=== PATIENT | female | born 1940 | race Caucasian/White ===

== ENCOUNTER 2020-05-24 07:10 | Outpatient (REF) | payer MEDICARE, OTHER, SELFPAY ==
[2020-05-24 12:15] LABS: Anion Gap 12 (12-20); Blood Urea Nitrogen 23 mg/dL (9-16); Calcium 8.7 mg/dL (8.4-10.2); Carbon Dioxide 29 mmol/L (22-29); Chloride 102 mmol/L (96-108); Estimated Glomerular Filt Rate 45; Glucose Random 92 mg/dL (60-115); Potassium 4.4 mmol/l (3.3-5.1); Sodium 139 mmol/L (135-145)
== END 2020-05-24 07:11 | disposition home or self-care (01) ==
LOC: HO.HMGCLDS 07:10
PROVIDERS: PCP Internal Medicine; Visit Provider Internal Medicine
DX: N18.30 Chronic kidney disease, stage 3 unspecified (principal)
CPT/HCPCS: 80048

== ENCOUNTER 2020-11-26 08:38 | Outpatient (REF) | payer MEDICARE, OTHER, SELFPAY ==
[2020-11-26 11:29] LABS: Hematocrit 38.6 % (37-47); Mean Corpuscular HGB Conc 33.7 g/dl (31.0-35.0); Mean Corpuscular Hemoglobin 31.9 pg (27.0-33.0); Mean Corpuscular Volume 94.8 fL (80-98); Mean Platelet Volume 10.4 fL (9.4-12.3); Platelet Count 223 X10*3/uL (160-400); Red Blood Count 4.07 X10*6/uL (4.20-5.50); Red Cell Distribution Width 12.4 % (11.0-16.0); White Blood Count 4.8 X10*3/uL (4.8-10.8)
[2020-11-26 12:18] LABS: Thyroid Stimulating Hormone 1.65 uIU/mL (0.32-4.0)
[2020-11-26 12:19] LABS: Alanine Aminotransferase 13 U/L (0-31); Albumin Level 4.2 g/dL (3.5-5.0); Alkaline Phosphatase 64 U/L (39-117); Anion Gap 10 (12-20); Aspartate Amino Transferase 16 U/L (5-31); Bilirubin Total 0.5 mg/dL (0.0-1.0); Blood Urea Nitrogen 19 mg/dL (9-16); Carbon Dioxide 30 mmol/L (22-29); Chloride 103 mmol/L (96-108); Cholesterol 260 mg/dL; Estimated Glomerular Filt Rate 47; Glucose Fasting 91 mg/dL (60-99); HDL Cholesterol 55 mg/dL; LDL Cholesterol Calculated 177 mg/dl; Potassium 4.3 mmol/L (3.3-5.1); Sodium 139 mmol/L (135-145); Triglycerides 144 mg/dL
== END 2020-11-26 08:39 | disposition home or self-care (01) ==
LOC: HO.HMGCLDS 08:38
PROVIDERS: PCP Internal Medicine; Visit Provider Internal Medicine
DX: N18.30 Chronic kidney disease, stage 3 unspecified (principal); E78.00 Pure hypercholesterolemia, unspecified
CPT/HCPCS: 36415; 80053; 80061; 84443; 85027

== ENCOUNTER 2021-03-03 08:23 | Outpatient (REF) | payer MEDICARE, OTHER, SELFPAY ==
--- NOTE | ~2021-03-03 | MM_ITS ---
EXAMINATION: MM SCREENING DIGITAL BREAST TOMOSYNTHESIS, BILATERAL CLINICAL INFORMATION: Screening. Asymptomatic. The lifetime risk of breast cancer based on the Tyrer-Cuzick Model is 3%. COMPARISON: Mammography: 02/27/2020, 02/21/2019, 01/10/2018 TECHNIQUE: Digital breast tomosynthesis is performed in both the craniocaudal and mediolateral oblique views along with computer-aided detection (CAD). Synthesized 2D images are generated from the tomosynthesis. FINDINGS: There are scattered areas of fibroglandular density (ACR BI-RADS breast composition Category b). There are no significant masses, abnormal calcifications, or other abnormalities. There are regional stable punctate round calcifications posterior upper outer right breast and some lesser on the left similar to prior exams. No significant changes. MM/MM tomosynthesis screening BI IMPRESSION: No significant changes from prior studies. ASSESSMENT: BI-RADS 2: Benign RECOMMENDATION: Routine annual mammography screening. This patient's information was entered into a reminder system with a target due date for their next mammogram.
== END 2021-03-03 08:24 | disposition home or self-care (01) ==
LOC: HO.MAMMO 08:23
PROVIDERS: PCP Internal Medicine; Visit Provider Internal Medicine
DX: Z12.31 Encounter for screening mammogram for malignant neoplasm of breast (principal)
CPT/HCPCS: 77063; 77067

== ENCOUNTER 2021-06-08 08:38 | Outpatient (REF) | payer MEDICARE, OTHER, SELFPAY ==
[2021-06-08 11:32] LABS: Hematocrit 39.2 % (37.0-47.0); Hemoglobin 13.4 g/dl (12.0-16.0); Mean Corpuscular HGB Conc 34.2 g/dl (31.0-35.0); Mean Corpuscular Hemoglobin 32.7 pg (27.0-33.0); Mean Corpuscular Volume 95.6 fL (80.0-98.0); Mean Platelet Volume 10.2 fL (9.4-12.3); Platelet Count 242 X10*3/uL (160-400); Red Cell Distribution Width 12.7 % (11.0-16.0); White Blood Count 4.9 X10*3/uL (4.8-10.8)
[2021-06-08 11:39] LABS: Anion Gap 10 (12-20); Blood Urea Nitrogen 21 mg/dL (9-16); Carbon Dioxide 28 mmol/L (22-29); Chloride 104 mmol/L (96-108); Estimated Glomerular Filt Rate 42; Glucose Random 100 mg/dL (60-115); Iron 131 mcg/dL (30-160); Percent Iron Saturation 47 % (15-50); Potassium 4.2 mmol/L (3.3-5.1); Sodium 138 mmol/L (135-145); Total Iron Binding Capacity 277 mcg/dL (228-428); Unsaturated Iron Binding 146 ug/dL
[2021-06-08 12:01] LABS: Vitamin D 25-OH Total 45.6 ng/mL (>30)
[2021-06-08 12:13] LABS: Folate 10.6 ng/mL (> or = 4.0); Vitamin B12 1424 pg/mL (200-900)
== END 2021-06-08 08:39 | disposition home or self-care (01) ==
LOC: HO.HMGCLDS 08:38
PROVIDERS: PCP Internal Medicine; Visit Provider Internal Medicine
DX: N18.30 Chronic kidney disease, stage 3 unspecified (principal); D64.9 Anemia, unspecified; E55.9 Vitamin D deficiency, unspecified; E78.00 Pure hypercholesterolemia, unspecified
CPT/HCPCS: 36415; 80048; 82306; 82607; 82746; 83540; 85027

== ENCOUNTER 2021-09-20 10:30 | Outpatient (RCR) | payer MEDICARE, OTHER, SELFPAY | END 2021-11-30 13:54 | disposition home or self-care (01) | LOC: HO.OT 10:30 | PROVIDERS: Visit Provider Physician Assistant Surgical | DX: M65.321 Trigger finger, right index finger (principal); M65.351 Trigger finger, right little finger; M65.341 Trigger finger, right ring finger; M19.041 Primary osteoarthritis, right hand | CPT/HCPCS: 97110; 97166 ==

== ENCOUNTER 2021-10-26 08:09 | Outpatient (REF) | payer MEDICARE, OTHER, SELFPAY ==
[2021-10-26 11:35] LABS: Hematocrit 38.7 % (37.0-47.0); Mean Corpuscular HGB Conc 33.6 g/dl (31.0-35.0); Mean Corpuscular Hemoglobin 32.2 pg (27.0-33.0); Mean Corpuscular Volume 95.8 fL (80.0-98.0); Mean Platelet Volume 10.5 fL (9.4-12.3); Platelet Count 232 X10*3/uL (160-400); Red Blood Count 4.04 X10*6/uL (4.20-5.50); Red Cell Distribution Width 13.2 % (11.0-16.0); White Blood Count 4.7 X10*3/uL (4.8-10.8)
[2021-10-26 11:46] LABS: Alanine Aminotransferase 13 U/L (0-31); Alkaline Phosphatase 58 U/L (39-117); Anion Gap 12 (12-20); Aspartate Amino Transferase 21 U/L (5-31); Bilirubin Total 0.6 mg/dL (0.0-1.0); Blood Urea Nitrogen 16 mg/dL (9-16); Calcium 9.1 mg/dL (8.4-10.2); Carbon Dioxide 26 mmol/L (22-29); Chloride 104 mmol/L (96-108); Cholesterol 239 mg/dL; Estimated Glomerular Filt Rate 46; Glucose Fasting 92 mg/dL (60-99); HDL Cholesterol 56 mg/dL; Iron 94 mcg/dL (30-160); LDL Cholesterol Calculated 167 mg/dl; Percent Iron Saturation 35 % (15-50); Potassium 4.4 mmol/L (3.3-5.1); Sodium 138 mmol/L (135-145); Total Iron Binding Capacity 268 mcg/dL (228-428); Total Protein 6.8 g/dL (6.5-8.0); Triglycerides 84 mg/dL; Unsaturated Iron Binding 174 ug/dL
[2021-10-26 11:56] LABS: Vitamin D 25-OH Total 40.2 ng/mL (>30)
[2021-10-26 12:10] LABS: Folate 7.6 ng/mL (> or = 4.0); Vitamin B12 1234 pg/mL (200-900)
[2021-10-27 05:03] LABS: SARS COV2 IgG Positive (Negative)
== END 2021-10-26 08:10 | disposition home or self-care (01) ==
LOC: HO.HMGCLDS 08:09
PROVIDERS: Visit Provider Internal Medicine
DX: Z00.00 Encounter for general adult medical examination without abnormal findings (principal); N18.30 Chronic kidney disease, stage 3 unspecified; E55.9 Vitamin D deficiency, unspecified; E78.00 Pure hypercholesterolemia, unspecified; E53.8 Deficiency of other specified B group vitamins; Z20.822 Contact with and (suspected) exposure to COVID-19
CPT/HCPCS: 36415; 80053; 80061; 82306; 82607; 82746; 83540; 85027; 86769

== ENCOUNTER 2021-12-29 08:00 | Outpatient (REF) | payer MEDICARE, OTHER, SELFPAY ==
[2021-12-29 11:45] LABS: Alanine Aminotransferase 19 U/L (0-31); Albumin Level 4.2 g/dL (3.5-5.0); Alkaline Phosphatase 71 U/L (39-117); Anion Gap 11 (12-20); Aspartate Amino Transferase 20 U/L (5-31); Bilirubin Total 0.6 mg/dL (0.0-1.0); Blood Urea Nitrogen 17 mg/dL (9-16); Carbon Dioxide 30 mmol/L (22-29); Chloride 103 mmol/L (96-108); Estimated Glomerular Filt Rate 50; Glucose Fasting 98 mg/dL (60-99); Potassium 4.8 mmol/L (3.3-5.1); Sodium 139 mmol/L (135-145)
== END 2021-12-29 08:01 | disposition home or self-care (01) ==
LOC: HO.HMGCLDS 08:00
PROVIDERS: PCP Internal Medicine; Visit Provider Internal Medicine
DX: I12.9 Hypertensive chronic kidney disease with stage 1 through stage 4 chronic kidney disease, or unspecified chronic kidney disease (principal); N18.30 Chronic kidney disease, stage 3 unspecified
CPT/HCPCS: 36415; 80053

== ENCOUNTER 2022-03-28 11:31 | Outpatient (REF) | payer MEDICARE, OTHER, SELFPAY ==
--- NOTE | ~2022-03-28 | MM_ITS ---
EXAMINATION: MM SCREENING DIGITAL BREAST TOMOSYNTHESIS, BILATERAL CLINICAL INFORMATION: Screening. Asymptomatic. The lifetime risk of breast cancer based on the Tyrer-Cuzick Model is 1.6%. COMPARISON: Mammography: March 03, 2021 and studies dating back to October 28, 2013 TECHNIQUE: Digital breast tomosynthesis is performed in both the craniocaudal and mediolateral oblique views along with computer-aided detection (CAD). Synthesized 2D images are generated from the tomosynthesis. FINDINGS: There are scattered areas of fibroglandular density (ACR BI-RADS breast composition Category b). There are no significant masses, abnormal calcifications, or other abnormalities. MM/MM tomosynthesis screening BI IMPRESSION: No significant changes from prior exam. ASSESSMENT: BI-RADS 1: Negative RECOMMENDATION: Routine annual mammography screening. This patient's information was entered into a reminder system with a target due date for their next mammogram.
== END 2022-03-28 11:32 | disposition home or self-care (01) ==
LOC: HO.MAMMO 11:31
PROVIDERS: PCP Internal Medicine; Visit Provider Internal Medicine
DX: Z12.31 Encounter for screening mammogram for malignant neoplasm of breast (principal)
CPT/HCPCS: 77063; 77067

== ENCOUNTER 2022-06-13 08:12 | Outpatient (REF) | payer MEDICARE, OTHER, SELFPAY ==
[2022-06-13 11:42] LABS: MANUAL DIFF FLAG NO
[2022-06-13 11:55] LABS: Basophils Percent Auto 0.7 % (0-2); Eosinophils Absolute Auto 0.2 X10*3/uL (0.0-0.4); Eosinophils Percent Auto 4.3 % (0-4); Hematocrit 38.4 % (37.0-47.0); Hemoglobin 12.6 g/dl (12.0-16.0); Imm Gran Abs Auto 0.01 X10*3/uL (0.00-0.03); Imm Gran Pct Auto 0.2 % (0.0-0.4); Lymphocytes Absolute Auto 1.6 X10*3/uL (1.2-4.9); Lymphocytes Percent Auto 36.7 % (20-40); Mean Corpuscular HGB Conc 32.8 g/dl (31.0-35.0); Mean Corpuscular Hemoglobin 31.6 pg (27.0-33.0); Mean Corpuscular Volume 96.2 fL (80.0-98.0); Mean Platelet Volume 10.1 fL (9.4-12.3); Monocytes Absolute Auto 0.3 X10*3/uL (0.1-1.2); Monocytes Percent Auto 6.1 % (2-11); Neutrophils Absolute Auto 2.3 x10*3/uL (2.0-8.3); Platelet Count 229 X10*3/uL (160-400); Red Blood Count 3.99 X10*6/uL (4.20-5.50); Red Cell Distribution Width 12.5 % (11.0-16.0); White Blood Count 4.4 X10*3/uL (4.8-10.8)
[2022-06-13 12:12] LABS: Alanine Aminotransferase 16 U/L (0-31); Albumin Level 4.1 g/dL (3.5-5.0); Alkaline Phosphatase 73 U/L (39-117); Anion Gap 15 (12-20); Aspartate Amino Transferase 19 U/L (5-31); Bilirubin Total 0.5 mg/dL (0.0-1.0); Blood Urea Nitrogen 23 mg/dL (9-16); Carbon Dioxide 27 mmol/L (22-29); Chloride 103 mmol/L (96-108); Cholesterol 251 mg/dL; Estimated Glomerular Filt Rate 42; Glucose Fasting 89 mg/dL (60-99); HDL Cholesterol 52 mg/dL; LDL Cholesterol Calculated 174 mg/dl; Potassium 4.9 mmol/L (3.3-5.1); Sodium 140 mmol/L (135-145); Total Protein 6.8 g/dL (6.5-8.0); Triglycerides 129 mg/dL
[2022-06-13 12:34] LABS: TSH reflex Free T4 3.01 uIU/mL (0.32-4.0)
== END 2022-06-13 08:13 | disposition home or self-care (01) ==
LOC: HO.HMGCLDS 08:12
PROVIDERS: PCP Internal Medicine; Visit Provider Internal Medicine
DX: Z00.00 Encounter for general adult medical examination without abnormal findings (principal); E78.00 Pure hypercholesterolemia, unspecified; N18.30 Chronic kidney disease, stage 3 unspecified
CPT/HCPCS: 36415; 80053; 80061; 84443; 85025

== ENCOUNTER 2022-12-15 07:55 | Outpatient (REF) | payer MEDICARE, OTHER, SELFPAY ==
[2022-12-15 12:22] LABS: Alanine Aminotransferase 18 U/L (0-31); Alkaline Phosphatase 77 U/L (39-117); Anion Gap 11 (12-20); Aspartate Amino Transferase 17 U/L (5-31); Bilirubin Total 0.6 mg/dL (0.0-1.0); Blood Urea Nitrogen 18 mg/dL (9-16); Calcium 8.9 mg/dL (8.4-10.2); Carbon Dioxide 29 mmol/L (22-29); Chloride 106 mmol/L (96-108); Cholesterol 260 mg/dL; Estimated Glomerular Filt Rate 52; Glucose Fasting 98 mg/dL (60-99); HDL Cholesterol 49 mg/dL; LDL Cholesterol Calculated 172 mg/dl; Potassium 4.4 mmol/L (3.3-5.1); Sodium 142 mmol/L (135-145); Total Protein 6.6 g/dL (6.5-8.0); Triglycerides 199 mg/dL
[2022-12-15 12:43] LABS: Vitamin D 25-OH Total 35.8 ng/mL (>30)
== END 2022-12-15 07:56 | disposition home or self-care (01) ==
LOC: HO.HMGCLDS 07:55
PROVIDERS: PCP Internal Medicine; Visit Provider Internal Medicine
DX: N18.30 Chronic kidney disease, stage 3 unspecified (principal)
CPT/HCPCS: 36415; 80053; 80061; 82306

== ENCOUNTER 2022-12-26 08:26 | Outpatient (REF) | payer MEDICARE, OTHER, SELFPAY ==
--- NOTE | ~2022-12-26 | XR_ITS ---
EXAMINATION: XR CHEST CLINICAL INFORMATION: Cough COMPARISON: None available. TECHNIQUE: 2 views of the chest were obtained. FINDINGS: The well-expanded and clear. The heart size and pulmonary vascularity is normal. There is moderate spondylosis dorsal spine. There is mild dextroscoliosis dorsal spine. No aggressive lytic or sclerotic process seen. XR/XR chest 2V IMPRESSION: Unremarkable chest exam.
== END 2022-12-26 08:27 | disposition home or self-care (01) ==
LOC: HO.HMGCX 08:26
PROVIDERS: PCP Internal Medicine; Visit Provider Internal Medicine
DX: R05.9 Cough, unspecified (principal)
CPT/HCPCS: 71046

== ENCOUNTER 2023-02-09 13:10 | Outpatient (AMB) | payer MEDICARE, OTHER, SELFPAY ==
[2023-02-09 13:20] VITALS: BP 136/72; PULSE 76; O2SAT 97; BMI 26.2
--- NOTE | 2023-02-09 13:20 | MHC.PC.OV ---
Vital Signs 02/09/23 13:20 Height 5 ft 3 in Weight 148 lb BMI 26.2 BP 136/72 Blood Pressure Location Lt brachial Position Sitting Pulse 76 Pulse Source Pulse Oximeter Pulse Oximetry (%) 97 Oxygen Delivery Method Room Air Intake Visit Reasons: sweating, anxiety Intake Note: Pt is here today for a sick visit. Pt c/o anxiety sweating. Allergies amoxicillin [AMOXICILLIN] Allergy (Intermediate, Verified 02/09/23 13:42) RASH/BURNING/DIFF.BREATHING latex [LATEX] Allergy (Mild, Verified 02/09/23 13:42) RASH Medication List - Last Reconciled 02/09/23 by Celi Sidhu MD albuterol sulfate 90 mcg/actuation (Ventolin HFA) 1 inh inhalation QID PRN cyclosporine 0.05% drps ophthalmic (eye) estradiol 1 patch topical QWEEK fluticasone propionate 50 mcg/actuation 2 sprays intranasal DAILY latanoprost 0.005% 0 drps ophthalmic (eye) pravastatin 40 mg PO DAILY sertraline (Zoloft) 50 mg PO DAILY valacyclovir (Valtrex) 1,000 mg PO BID 10 days Tobacco use date assessed: 12/19/22 Dental Screening Dental Screen Date: 02/09/23 Did you have a dental visit in the last 12 months?: Yes Did you have a dental problem in the last 6 months where you did not have access to dental care?: No Was dental information given to patient?: Patient has dentist HPI sweating, anxiety HPI Details Pt complains of anxiety and depression about broken relationship of 7 years 1 month ago. Pt c/o insomnia and crying a lot. She denies suicidal ideation or change in appetite. [facility] Medical History Anemia Annual physical exam Anxiety and depression Carpal tunnel syndrome Chronic kidney disease, stage 3 Hypercholesterolemia Osteoarthritis RLL pneumonia Syncope, vasovagal Vitamin B 12 deficiency Vitamin D deficiency Surgical History H/O colonoscopy History of cataract History of total abdominal hysterectomy and bilateral salpingo-oophorectomy Family History Father Diabetes HTN (hypertension) Multiple myeloma CVD (cardiovascular disease) Cancer Mother Diabetes HTN (hypertension) CVD (cardiovascular disease) Brother Diabetes HTN (hypertension) Maternal Grandmother Diabetes Maternal Grandfather No problems noted. Paternal Grandfather No problems noted. Paternal Grandmother No problems noted. Maternal Aunt Diabetes Cancer Social History Housing: House Patient Tobacco Use Status: Former Tobacco user Quit Date: 1978 e-Cigarette/Vaping Use: Never Used Second Hand Smoke Exposure: No Current occupational status: retired Cognitive needs: No Hearing needs: No Vision needs: Yes Questionnaire Thrive Questionnaire Date Thrive assessed: 12/19/22 VARSHA-7 AMB Questionnaire VARSHA-7 Date VARSHA - 7 assessed: 12/19/22 Source: Developed by Drs. Toribio Farrell, Pamela Doan, Matheus Rice and colleagues, with an educational franki from [employer]. Review of Systems Const All systems reviewed & are unremarkable except as noted in HPI and below Reports no additional complaints Eyes Reports no additional complaints ENT Reports no additional complaints Card Reports no additional complaints Resp Reports no additional complaints GI Reports no additional complaints Physical exam (Primary Care) Vital Signs: Last Vital Signs Pulse 76 02/09/23 13:20 BP 136/72 02/09/23 13:20 Pulse Ox 97 02/09/23 13:20 Oxygen Delivery Method Room Air 02/09/23 13:20 BMI result Body Mass Index 26.2 Tobacco/Smoking Status: Tobacco use Status Tobacco use date assessed 12/19/22 02/09/23 13:20 Patient Tobacco Use Status Former Tobacco user 02/09/23 13:20 e-Cigarette/Vaping Use Never Used 02/09/23 13:20 Thrive Assessment: Date of Thrive Assessment Date Thrive assessed 12/19/22 02/09/23 13:20 Const General: anxious Resp Effort & Inspection: normal respiratory effort Auscultation: clear to auscultation bilaterally Cardio Rhythm: regular rhythm Heart sounds: S1 normal heart sound present and S2 normal heart sound present Assessment and Plan Assessment & Plan (1) Anxiety: Code(s): F41.9 - Anxiety disorder, unspecified Plan: Start 25 mg of Zoloft for the 1st week then increase to 50 mg. Follow-up in 5 weeks (2) Grief: Code(s): F43.21 - Adjustment disorder with depressed mood Plan: Refer patient to a counselor Medications: New sertraline (Zoloft) 1/2 tabl qd for 1 week, then 1 tabl qd 50 mg PO DAILY 30 tabs 2RF Coding Level of Care Code Est Pt Level 3 (39295) Diagnoses Anxiety F41.9 Grief F43.21
== END 2023-02-09 14:48 | disposition home or self-care (01) ==
PROVIDERS: PCP Internal Medicine; Visit Provider Internal Medicine
DX: F41.9 Anxiety disorder, unspecified (principal); F43.21 Adjustment disorder with depressed mood
CPT/HCPCS: 99213

== ENCOUNTER 2023-03-08 10:45 | Outpatient (AMB) | payer MEDICARE, OTHER, SELFPAY ==
[2023-03-08 10:57] VITALS: BP 120/64; PULSE 64; O2SAT 98; BMI 26.2
--- NOTE | 2023-03-08 10:57 | MHC.PC.OV ---
Vital Signs 03/08/23 10:57 Height 5 ft 3 in Weight 148 lb BMI 26.2 BP 120/64 Blood Pressure Location Lt brachial Position Sitting Pulse 64 Pulse Source Pulse Oximeter Pulse Oximetry (%) 98 Oxygen Delivery Method Room Air Intake Visit Reasons: 1m follow up Intake Note: Pt is here today for 1 month follow up visit. Allergies amoxicillin [AMOXICILLIN] Allergy (Intermediate, Verified 03/08/23 11:10) RASH/BURNING/DIFF.BREATHING latex [LATEX] Allergy (Mild, Verified 03/08/23 11:10) RASH Medication List - Last Reconciled 03/08/23 by Celi Sidhu MD albuterol sulfate 90 mcg/actuation (Ventolin HFA) 1 inh inhalation QID PRN cyclosporine 0.05% drps ophthalmic (eye) estradiol 1 patch topical QWEEK fluticasone propionate 50 mcg/actuation 2 sprays intranasal DAILY latanoprost 0.005% 0 drps ophthalmic (eye) pravastatin 40 mg PO DAILY rosuvastatin (Crestor) 20 mg PO DAILY sertraline (Zoloft) 50 mg PO DAILY valacyclovir (Valtrex) 1,000 mg PO BID 10 days Tobacco use date assessed: 03/08/23 Fall risk assessment: No Falls in past year Last assessed Fall Risk: 03/08/23 HPI 1m follow up HPI Details Pt presents for f/u anxiety and grief, better on Zoloft. Patient has been taking pravastatin for hyperlipidemia. [facility] Medical History Anemia Annual physical exam Anxiety and depression Carpal tunnel syndrome Chronic kidney disease, stage 3 Hypercholesterolemia Osteoarthritis RLL pneumonia Syncope, vasovagal Vitamin B 12 deficiency Vitamin D deficiency Surgical History H/O colonoscopy History of cataract History of total abdominal hysterectomy and bilateral salpingo-oophorectomy Family History Father Diabetes HTN (hypertension) Multiple myeloma CVD (cardiovascular disease) Cancer Mother Diabetes HTN (hypertension) CVD (cardiovascular disease) Brother Diabetes HTN (hypertension) Maternal Grandmother Diabetes Maternal Grandfather No problems noted. Paternal Grandfather No problems noted. Paternal Grandmother No problems noted. Maternal Aunt Diabetes Cancer Social History Housing: House Patient Tobacco Use Status: Former Tobacco user Quit Date: 1978 e-Cigarette/Vaping Use: Never Used Second Hand Smoke Exposure: No Current occupational status: retired Cognitive needs: No Hearing needs: No Vision needs: Yes Questionnaire Thrive Questionnaire Date Thrive assessed: 12/19/22 AUDIT C Alcohol Use Questionnaire (AUDIT-C) 1. How often do you have a drink containing alcohol?: Monthly or less 2. How many drinks containing alcohol do you have on a typical day when you are drinking?: 1 or 2 3. How often do you have six or more drinks on one occasion?: Never Total Score: 1 VARSHA-7 AMB Questionnaire VARSHA-7 Date VARSHA - 7 assessed: 12/19/22 Feeling nervous, anxious, or on edge: 3 = Nearly every day Not being able to stop or control worryin = Nearly every day Worrying too much about different things: 3 = Nearly every day Trouble relaxin = Nearly every day Being so restless that it is hard to sit still: 3 = Nearly every day Becoming easily annoyed or irritable: 3 = Nearly every day Feeling afraid as if something awful might happen: 3 = Nearly every day Total VARSHA-7 score (0-4 normal; 5-9 mild; 10-14 moderate; 15-21 severe): 21 Source: Developed by Drs. Toribio Farrell, Pamela Doan, Matheus Rice and colleagues, with an educational franki from [employer]. Review of Systems Const All systems reviewed & are unremarkable except as noted in HPI and below Reports no additional complaints Eyes Reports no additional complaints ENT Reports no additional complaints Card Reports no additional complaints Resp Reports no additional complaints GI Reports no additional complaints Physical exam (Primary Care) Vital Signs: Last Vital Signs Pulse 64 03/08/23 10:57 BP 146/64 H 03/08/23 10:57 Pulse Ox 98 03/08/23 10:57 Oxygen Delivery Method Room Air 03/08/23 10:57 BMI result Body Mass Index 26.2 Tobacco/Smoking Status: Tobacco use Status Tobacco use date assessed 03/08/23 03/08/23 11:19 Patient Tobacco Use Status Former Tobacco user 03/08/23 10:58 e-Cigarette/Vaping Use Never Used 03/08/23 10:58 Thrive Assessment: Date of Thrive Assessment Date Thrive assessed 12/19/22 03/08/23 10:58 Const General: no acute distress HENMT Mouth: Normal oral and palatal mucosa present Resp Effort & Inspection: normal respiratory effort Auscultation: clear to auscultation bilaterally Cardio Rhythm: regular rhythm Heart sounds: S1 normal heart sound present and S2 normal heart sound present Assessment and Plan Assessment & Plan (1) Anxiety: Code(s): F41.9 - Anxiety disorder, unspecified Plan: Continue Zoloft (2) Hypercholesterolemia: Code(s): E78.00 - Pure hypercholesterolemia, unspecified Plan: Change pravastatin to Crestor 20 mg and follow low-cholesterol diet Medications: New rosuvastatin (Crestor) 20 mg PO DAILY 90 tabs 0RF Discontinued pravastatin Discontinued Reason: Doctor's Order 40 mg PO DAILY 90 tabs 0RF Coding Level of Care Code Est Pt Level 3 (04692) Diagnoses Anxiety F41.9 Hypercholesterolemia E78.00
== END 2023-03-08 12:22 | disposition home or self-care (01) ==
PROVIDERS: PCP Internal Medicine; Visit Provider Internal Medicine
DX: F41.9 Anxiety disorder, unspecified (principal); E78.00 Pure hypercholesterolemia, unspecified
CPT/HCPCS: 99213

== ENCOUNTER 2023-04-05 10:37 | Outpatient (REF) | payer MEDICARE, OTHER, SELFPAY ==
--- NOTE | ~2023-04-05 | MM_ITS ---
EXAMINATION: MM SCREENING DIGITAL BREAST TOMOSYNTHESIS, BILATERAL CLINICAL INFORMATION: Screening. Asymptomatic. COMPARISON: Mammography: This study is compared with prior exams dating back to 2018. TECHNIQUE: Digital breast tomosynthesis is performed in both the craniocaudal and mediolateral oblique views along with computer-aided detection (CAD). Synthesized 2D images are generated from the tomosynthesis. FINDINGS: There are scattered areas of fibroglandular density (ACR BI-RADS breast composition Category b). There are no significant masses, abnormal calcifications, or other abnormalities. Unchanged, benign, loosely grouped calcifications in the upper quadrant of the right breast are present. MM/MM tomosynthesis screening BI IMPRESSION: No mammographic evidence of malignancy. ASSESSMENT: BI-RADS BI-RADS 2 - Benign Findings RECOMMENDATION: Routine annual mammography screening. 1 year F/U This examination should not preclude the clinical evaluation of a suspicious palpable abnormality. This patient's information was entered into a reminder system with a target due date for their next mammogram.
== END 2023-04-05 10:38 | disposition home or self-care (01) ==
LOC: HO.MAMMO 10:37
PROVIDERS: PCP Internal Medicine; Visit Provider Internal Medicine
DX: Z12.31 Encounter for screening mammogram for malignant neoplasm of breast (principal)
CPT/HCPCS: 77063; 77067

== ENCOUNTER → 2023-04-05 11:00 | Outpatient (BNV) | payer MEDICARE, OTHER, SELFPAY | PROVIDERS: PCP Internal Medicine; Visit Provider Radiology Diagnostic Radiology | DX: Z12.31 Encounter for screening mammogram for malignant neoplasm of breast (principal) | CPT/HCPCS: 77063; 77067 ==

== ENCOUNTER 2023-04-19 10:47 | Outpatient (AMB) | payer MEDICARE, OTHER, SELFPAY ==
[2023-04-19 10:49] VITALS: BP 136/72; PULSE 71; O2SAT 95; BMI 25.7
--- NOTE | 2023-04-19 10:49 | MHC.PC.OV ---
Vital Signs 04/19/23 10:49 Height 5 ft 3 in Weight 145 lb BMI 25.7 BP 136/72 Blood Pressure Location Lt brachial Position Sitting Pulse 71 Pulse Source Pulse Oximeter Pulse Oximetry (%) 95 Oxygen Delivery Method Room Air Intake Visit Reasons: 6 week fu Intake Note: Pt is here today for 6 weeks follow up visit. Allergies amoxicillin [AMOXICILLIN] Allergy (Intermediate, Verified 04/19/23 10:51) RASH/BURNING/DIFF.BREATHING latex [LATEX] Allergy (Mild, Verified 04/19/23 10:51) RASH Medication List - Last Reconciled 04/19/23 by Celi Sidhu MD albuterol sulfate 90 mcg/actuation (Ventolin HFA) 1 inh inhalation QID PRN cyclosporine 0.05% drps ophthalmic (eye) estradiol 1 patch topical QWEEK fluticasone propionate 50 mcg/actuation 2 sprays intranasal DAILY latanoprost 0.005% 0 drps ophthalmic (eye) rosuvastatin (Crestor) 20 mg PO DAILY sertraline (Zoloft) 50 mg PO DAILY valacyclovir (Valtrex) 1,000 mg PO BID 10 days Tobacco use date assessed: 04/19/23 Dental Screening Dental Screen Date: 04/19/23 Did you have a dental visit in the last 12 months?: Yes Did you have a dental problem in the last 6 months where you did not have access to dental care?: No Was dental information given to patient?: Patient has dentist HPI 6 week fu HPI Details Pt presents for f/u of anxiety, stable on Zoloft PFSH Medical History Vitamin B 12 deficiency Annual physical exam Vitamin D deficiency Anemia Chronic kidney disease, stage 3 RLL pneumonia Carpal tunnel syndrome Anxiety and depression Osteoarthritis Syncope, vasovagal Hypercholesterolemia Surgical History H/O colonoscopy History of cataract History of total abdominal hysterectomy and bilateral salpingo-oophorectomy Family History Father Diabetes HTN (hypertension) Multiple myeloma CVD (cardiovascular disease) Cancer Mother Diabetes HTN (hypertension) CVD (cardiovascular disease) Brother Diabetes HTN (hypertension) Maternal Grandmother Diabetes Maternal Grandfather No problems noted. Paternal Grandfather No problems noted. Paternal Grandmother No problems noted. Maternal Aunt Diabetes Cancer Social History Housing: House Patient Tobacco Use Status: Former Tobacco user Quit Date: 1978 e-Cigarette/Vaping Use: Never Used Second Hand Smoke Exposure: No Current occupational status: retired Cognitive needs: No Hearing needs: No Vision needs: Yes Questionnaire Thrive Questionnaire Date Thrive assessed: 12/19/22 VARSHA-7 AMB Questionnaire VARSHA-7 Date VARSHA - 7 assessed: 12/19/22 Source: Developed by Drs. Toribio Farrell, Pamela Doan, Matheus Rice and colleagues, with an educational franki from [employer]. Review of Systems Const All systems reviewed & are unremarkable except as noted in HPI and below Reports no additional complaints Eyes Reports no additional complaints ENT Reports no additional complaints Card Reports no additional complaints Resp Reports no additional complaints GI Reports no additional complaints Reports no additional complaints Physical exam (Primary Care) Vital Signs: Last Vital Signs Pulse 71 04/19/23 10:49 BP 136/72 04/19/23 10:49 Pulse Ox 95 04/19/23 10:49 Oxygen Delivery Method Room Air 04/19/23 10:49 BMI result Body Mass Index 25.7 Tobacco/Smoking Status: Tobacco use Status Tobacco use date assessed 04/19/23 04/19/23 10:53 Patient Tobacco Use Status Former Tobacco user 04/19/23 10:53 e-Cigarette/Vaping Use Never Used 04/19/23 10:53 Thrive Assessment: Date of Thrive Assessment Date Thrive assessed 12/19/22 04/19/23 10:53 Const General: no acute distress HENMT Ears: hearing grossly normal bilaterally Face and sinus: Yes normal facial exam Throat: Yes posterior oropharynx normal Neck Neck: Yes supple Resp Effort & Inspection: normal respiratory effort Auscultation: clear to auscultation bilaterally Cardio Rhythm: regular rhythm Heart sounds: S1 normal heart sound present and S2 normal heart sound present Assessment and Plan Assessment & Plan (1) Anxiety: Code(s): F41.9 - Anxiety disorder, unspecified Plan: cont Zoloft (2) Hypercholesterolemia: Code(s): E78.00 - Pure hypercholesterolemia, unspecified Plan: cont Crestor Coding Level of Care Code Est Pt Level 3 (82444) Diagnoses Anxiety F41.9 Hypercholesterolemia E78.00
== END 2023-04-19 11:13 | disposition home or self-care (01) ==
PROVIDERS: PCP Internal Medicine; Visit Provider Internal Medicine
DX: F41.9 Anxiety disorder, unspecified (principal); E78.00 Pure hypercholesterolemia, unspecified
CPT/HCPCS: 99213

== ENCOUNTER 2023-06-12 07:46 | Outpatient (REF) | payer MEDICARE, OTHER, SELFPAY ==
[2023-06-12 11:17] LABS: MANUAL DIFF FLAG NO
[2023-06-12 11:25] LABS: Basophils Percent Auto 0.6 % (0-2); Eosinophils Absolute Auto 0.2 X10*3/uL (0.0-0.4); Eosinophils Percent Auto 3.1 % (0-4); Hematocrit 37.5 % (37.0-47.0); Hemoglobin 12.3 g/dl (12.0-16.0); Imm Gran Abs Auto 0.01 X10*3/uL (0.00-0.03); Imm Gran Pct Auto 0.2 % (0.0-0.4); Lymphocytes Percent Auto 31.1 % (20-40); Mean Corpuscular HGB Conc 32.8 g/dl (31.0-35.0); Mean Corpuscular Hemoglobin 31.8 pg (27.0-33.0); Mean Corpuscular Volume 96.9 fL (80.0-98.0); Mean Platelet Volume 10.1 fL (9.4-12.3); Monocytes Absolute Auto 0.3 X10*3/uL (0.1-1.2); Monocytes Percent Auto 5.3 % (2-11); Neutrophils Absolute Auto 3.8 x10*3/uL (2.0-8.3); Neutrophils Percent Auto 59.7 % (45-73); Platelet Count 231 X10*3/uL (160-400); Red Blood Count 3.87 X10*6/uL (4.20-5.50); Red Cell Distribution Width 13.1 % (11.0-16.0); White Blood Count 6.4 X10*3/uL (4.8-10.8)
[2023-06-12 11:59] LABS: Alanine Aminotransferase 32 U/L (0-31); Albumin Level 4.1 g/dL (3.5-5.0); Alkaline Phosphatase 74 U/L (39-117); Anion Gap 9 (12-20); Aspartate Amino Transferase 26 U/L (5-31); Bilirubin Total 0.4 mg/dL (0.0-1.0); Blood Urea Nitrogen 13 mg/dL (9-16); Calcium 8.9 mg/dL (8.4-10.2); Carbon Dioxide 30 mmol/L (22-29); Chloride 104 mmol/L (96-108); Cholesterol 125 mg/dL (<200); Estimated Glomerular Filt Rate 53; Glucose Fasting 99 mg/dL (60-99); HDL Cholesterol 49 mg/dL (>40); LDL Cholesterol Calculated 51 mg/dL (<100); Potassium 4.1 mmol/L (3.3-5.1); Sodium 139 mmol/L (135-145); TSH reflex Free T4 2.14 uIU/mL (0.32-4.0); Triglycerides 128 mg/dL (<150); Vitamin D 25-OH Total 43.7 ng/mL (>30)
== END 2023-06-12 07:47 | disposition home or self-care (01) ==
LOC: HO.HMGCLDS 07:46
PROVIDERS: PCP Internal Medicine; Visit Provider Internal Medicine
DX: N18.30 Chronic kidney disease, stage 3 unspecified (principal); E53.8 Deficiency of other specified B group vitamins; E78.00 Pure hypercholesterolemia, unspecified; E55.9 Vitamin D deficiency, unspecified
CPT/HCPCS: 36415; 80053; 80061; 82306; 84443; 85025

== ENCOUNTER 2023-06-19 08:46 | Outpatient (AMB) | payer MEDICARE, OTHER, SELFPAY ==
[2023-06-19 08:54] VITALS: BP 120/66; PULSE 75; O2SAT 98; BMI 25.3
--- NOTE | 2023-06-19 08:54 | A.OFFVIS_ITS ---
Intake Vital Signs 06/19/23 08:54 Height 5 ft 3 in Weight 143 lb BMI 25.3 BP 120/66 Blood Pressure Location Lt brachial Position Sitting Pulse 75 Pulse Source Pulse Oximeter Pulse Oximetry (%) 98 Oxygen Delivery Method Room Air Intake Visit Reasons: [facility] G0439 Allergies amoxicillin [AMOXICILLIN] Allergy (Intermediate, Verified 06/19/23 08:58) RASH/BURNING/DIFF.BREATHING latex [LATEX] Allergy (Mild, Verified 06/19/23 08:58) RASH Medication List - Last Reconciled 06/19/23 by Celi Sidhu MD albuterol sulfate 90 mcg/actuation (Ventolin HFA) 1 inh inhalation QID PRN cyclosporine 0.05% drps ophthalmic (eye) estradiol 1 patch topical QWEEK fluticasone propionate 50 mcg/actuation 2 sprays intranasal DAILY latanoprost 0.005% 0 drps ophthalmic (eye) rosuvastatin (Crestor) 20 mg PO DAILY sertraline (Zoloft) 50 mg PO DAILY valacyclovir (Valtrex) 1,000 mg PO BID 10 days HPI [facility] G0439 HPI Details Initiated the conversation about Advanced Directives. Advanced Directives help? patients prepare for current and future decisions about their medical treatment? and place of care. Discussed with patient that it is a process where a patients? current condition and prognosis are reviewed, their wishes for information? regarding their illness are elicited, and likely medical dilemmas are presented? and options discussed. The form can be amended as needed, reviewed yearly and? make changes as needed IPPE/AWV ? year old presents? for her ? Annual? Wellness Visit, initial visit.? Medical / Social History Reviewed? Past Medical History ?Yes? . ? [place]? of Care / Care Team list updated ?Yes . ? Surgical/Hospitalization? History ?Yes . ? Current Medications? (including OTC and supplements) ?Yes . ? Family History ?Yes? . ? Tobacco? Control form ?Yes . ? AUDIT-C (Alcohol use) form? ?Yes . ? Illicit drug use in Social? History ?Yes . ? Current diagnosis of? depression? ?No ? Appropriate PHQ2/PHQ9? completed ?Yes . ? Data entered by ?Medical? Sales Solutions Representative and reviewed by provider ? Fall Risk ? Fall? History? Have you had any falls with? injury in the past year? ?No . ? Have you had two or more? falls in the past year? ?No . ? Fall Risk Assessment: ?No? falls in the past year . ? HRA filled out by? the patient, reviewed by Provider and scanned. ? IPPE/AWV ? Balance? [place]? ?Yes . ? Tandem? walk ?Yes . ? Walk and? Turn ?Yes . ? Rise from? sit to stand ?Yes . ?Vision? Corrective? lens ?Yes ? Vision? screen ? Up-to-date, has an appointment [] for vision? screening and glaucoma screening ?Hearing? Whisper? test ?pass .? Initiated the conversation about Advanced Directives. Advanced Directives help? patients prepare for current and future decisions about their medical treatment? and place of care. Discussed with patient that it is a process where a patien ts? current condition and prognosis are reviewed, their wishes for information? regarding their illness are elicited, and likely medical dilemmas are presented? and options discussed. The form can be amended as needed, reviewed yearly and? make changes as needed Written? Plan?Completed. See Patient? Documents. [facility] Medical History Vitamin B 12 deficiency Annual physical exam Vitamin D deficiency Anemia Chronic kidney disease, stage 3 RLL pneumonia Carpal tunnel syndrome Anxiety and depression Osteoarthritis Syncope, vasovagal Hypercholesterolemia Surgical History H/O colonoscopy History of cataract History of total abdominal hysterectomy and bilateral salpingo-oophorectomy Family History Father Diabetes HTN (hypertension) Multiple myeloma CVD (cardiovascular disease) Cancer Mother Diabetes HTN (hypertension) CVD (cardiovascular disease) Brother Diabetes HTN (hypertension) Maternal Grandmother Diabetes Maternal Grandfather No problems noted. Paternal Grandfather No problems noted. Paternal Grandmother No problems noted. Maternal Aunt Diabetes Cancer Social History Housing: House Patient Tobacco Use Status: Former Tobacco user Quit Date: 1978 e-Cigarette/Vaping Use: Never Used Second Hand Smoke Exposure: No Current occupational status: retired Cognitive needs: No Hearing needs: No Vision needs: Yes Questionnaire Medicare Wellness Checkup What is your age?: 80 or older What gender do you identify with?: female During the past 4 weeks, how much have you been bothered by emotional problems such as feeling anxious, depressed, irritable, sad or downhearted, and blue?: see PHQ-9 During the past 4 weeks, has your physical & emotional health limited your social activities with family, friends, neighbors, or groups?: extremely During the past 4 weeks, how much bodily pain have you generally had?: no pain During the past 4 weeks, was someone available to help you if you needed & wanted help?: no, not at all During the past 4 weeks, what was the hardest physical activity you could do for at least 2 minutes?: very heavy Can you get to places out of walking distance without help? (For eg., can you travel alone on buses, taxis or drive your car?): Yes Can you go shopping for groceries or clothes without someone's help?: Yes Can you prepare your own meals?: Yes Can you do your housework without help?: Yes Because of any health problems, do you need the help of another person with your personal care needs such as eating, bathing, dressing or getting around the house?: No Can you handle your own money without help?: Yes During the past 4 weeks, how would you rate your health in general?: excellent During the past 4 weeks how have things been going for you?: good & bad parts about equal Are you having difficulties driving your car?: no Do you always fasten your seat belt when you are in a car?: yes, usually During past 4 weeks, have you been bothered by the following: never: Sexual problems?, Trouble eating well?, Teeth or denture problems?, Problems using the telephone? and Tiredness or fatigue? and seldom: Falling or dizzy when standing up Have you fallen 2 or more times in the past year?: Yes Are you afraid of falling?: No Are you a smoker?: no During the past 4 weeks, how many drinks of wine, beer, or other alcoholic beverages did you have?: 10 or more per week Do you exercise for about 20 minutes 3 or more times a week?: yes, some of the time Have you been given information to help with the following?: no: Hazards in your house that might hurt you? and no: Keeping track of your medications? How often do you have trouble taking medicines the way you have been told to take them?: I always take medicine as prescribed How confident are you that you can control & manage most of your health problems?: very confident What is your race?: White Mini Mental State Exam (MMSE) Orientation What is the (year) (season) (date) (day) (month)?: year, season, date, day and month Where are we (state) (county) (town or city) (hospital) (floor)?: state, county, town or city, hospital/clinic and floor Registration Name of 3 unrelated objects clearly and slowly, then ask patient to repeat all 3 of them. (1st repeat determines score. Make sure they can repeat all three): object 1 and object 2 Attention & Calculation (CHOOSE ONE) Spell WORLD backwards (DLROW): 5 letters Recall Ask patient to repeat the 3 items from question #3.: object 1, object 2 and object 3 Language Show patient a wristwatch & ask what it is. Repeat for pencil.: watch and pencil Ask the patient to repeat the phrase 'No ifs, ands, or buts' after you.: correct Ask the patient to 'take a piece of paper with their right hand' 'fold paper in half' 'place paper on floor': take paper in right hand, fold paper in half and place paper on floor Print the sentence 'CLOSE YOUR EYES' on a piece. If patient actually closes eyes then score.: followed written direction Give patient a blank piece of paper & ask to write a sentence. Score if it contains a noun & verb.: sentence contains subject and verb Ask patient to copy figure of intersecting pentagons exactly. Score if all 10 angles & 2 intersects are included.: all 10 angles present & 2 are intersected Score Score: 29 Activity of Daily Living Bathing - sponge bath, tub bath or shower: receives no assistance (gets in/out by self, if usual bathing means Dressing - getting clothes from closets & drawers, including inner/outer garments & fasteners.: gets clothes & gets completely dressed without help Toileting - going to the 'toilet room' for urine/bowel elimination & cleaning self/arranging clothes: goes to toilet room, cleans self, arranges clothes without help Transfer: moves in & out of bed and chair without help (may use support object) Continence: controls urination/bowel movements completely by self Feeding: feeds self without help Total Score: 0 Information obtained from: patient Using telephone: independent Traveling: independent Shopping: independent Preparing meals: independent Housework: independent Taking medicine: independent Managing money: independent PHQ-9 Over the last 2 weeks, how often have you been bothered by any of the following problems? 1. Little interest or pleasure in doing things: not at all 2. Feeling down, depressed, or hopeless: not at all 3. Trouble falling or staying asleep, or sleeping too much: several days 4. Feeling tired or having little energy: several days 5. Poor appetite or overeating: not at all 6. Feeling bad about yourself - or that you are a failure or have let yourself or your family down: not at all 7. Trouble concentrating on things, such as reading the newspaper or watching television: not at all 8. Moving or speaking so slowly that other people could have noticed. Or the opposite - being so fidgety or restless that you have been moving around a lot more than usual: not at all 9. Thoughts that you would be better off or of hurting yourself in some way: not at all Total score: 2 Depression Screening Interpretation: Negative Depression Screening Done: Yes Source: Developed by Drs. Toribio Farrell, Pamela Doan, Matheus Rice and colleagues, with an educational franki from [employer]. Review of Systems Const All systems reviewed & are unremarkable except as noted in HPI and below Eyes Reports no additional complaints ENT Reports no additional complaints Card Reports no additional complaints Resp Reports no additional complaints GI Reports no additional complaints Reports no additional complaints Musc Reports no additional complaints Neuro Reports no additional complaints Physical Exam Vital Signs: Last Vital Signs Pulse 75 06/19/23 08:54 BP 120/66 06/19/23 08:54 Pulse Ox 98 06/19/23 08:54 Oxygen Delivery Method Room Air 06/19/23 08:54 BMI result Body Mass Index 25.3 Const General: no acute distress HEENT Head: Yes normal to inspection Ears: hearing grossly normal bilaterally Eyes General: appearance normal, both eyes and all related structures Neck Neck: Yes no lymphadenopathy and Yes supple Resp Effort & Inspection: normal respiratory effort Auscultation: clear to auscultation bilaterally Cardio Rhythm: regular rhythm Heart sounds: S1 normal heart sound present and S2 normal heart sound present GI Inspection: Yes normal to inspection Palpation (GI): Soft to palpation Percussion: Yes normal to percussion Auscultation: normal bowel sounds Extrem General: Yes no clubbing, cyanosis or edema Assessment & Plan Assessment & Plan (1) Hypercholesterolemia: Code(s): E78.00 - Pure hypercholesterolemia, unspecified Plan: Decrease Crestor to 10 mg a day check lipid profile in 3 months (2) Postmenopausal: Code(s): Z78.0 - Asymptomatic menopausal state Plan: Check DEXA (3) Annual physical exam: Code(s): Z00.00 - Encounter for general adult medical examination without abnormal findings Plan: Well-balanced diet and regular physical activity discussed with the patient. (4) Anxiety: Code(s): F41.9 - Anxiety disorder, unspecified Plan: Continue Zoloft follow-up in 3 months Orders: Orders Lipid Panel 3 Months E78.00 - Pure hypercholesterolemia, unspecified XR DEXA axial skeleton Today Z78.0 - Asymptomatic menopausal state Medications: Refilled sertraline (Zoloft) 50 mg PO DAILY 90 tabs 1RF Quality Reporting (2019) Depression/Bipolar (159/160/161/177) PHQ-9: Total score: 2 Coding Level of Care Code Medicare Subsequent (G0439) Diagnoses Hypercholesterolemia E78.00 Postmenopausal Z78.0 Annual physical exam Z00.00 Anxiety F41.9 CPT Codes Advance Care Planning - Time spent: 1-15 minutes, not on file ([id number]) Advance Care Planning Advance Care Planning discussion: Exists, not on file Forms completed: Health Care Proxy Time spent: 1-15 minutes, not on file Did not discuss due to Cultural/Spiritual beliefs: Yes
== END 2023-06-19 09:47 | disposition home or self-care (01) ==
PROVIDERS: PCP Internal Medicine; Visit Provider Internal Medicine
DX: E78.00 Pure hypercholesterolemia, unspecified (principal); Z78.0 Asymptomatic menopausal state; Z00.00 Encounter for general adult medical examination without abnormal findings; F41.9 Anxiety disorder, unspecified
CPT/HCPCS: 1124F; G0439

== ENCOUNTER 2023-08-02 10:41 | Outpatient (REF) | payer MEDICARE, OTHER, SELFPAY ==
--- NOTE | ~2023-08-02 | MM_ITS ---
EXAMINATION: BONE DENSITOMETRY CLINICAL INDICATION: Menopause. COMPARISON: Previous BD dated 09/03/2014 and baseline BD dated 06/16/2008. TECHNIQUE: Using a [employer] DXA System (software version: 13.1) manufactured by [employer], dual-energy x-ray absorptiometry was performed of the lumbar spine and left hip. The images are of good technical quality. Summary results are attached. FINDINGS: LEFT FEMUR, NECK: Current: BMD 0.952 g/cm2, Z-score 1.6, T-score -0.6, normal. Prior: BMD 0.997 g/cm2. Baseline: BMD 1.015 g/cm2. LEFT FEMUR, TOTAL: Current: BMD 1.089 g/cm2, Z-score 2.7, T-score 0.6, normal, 3.0% decrease from previous, 7.2% disc from baseline (<5% change is not significant). Prior: BMD 1.123 g/cm2. Baseline: BMD 1.174 g/cm2. AP SPINE L1-L4: Current: BMD 1.177 g/cm2, Z-score 1.8, T-score 0.0, normal, 0.8% increase from previous, 4.3% increase from baseline (<5% change is not significant). Prior: BMD 1.168 g/cm2. Baseline: BMD 1.128 g/cm2. IDENTIFIED RISK FACTORS: Early menopause, history of fracture (adult), bilateral oophorectomy, hysterectomy, secondary osteoporosis. HISTORY OF FRACTURE: Wrist, other. MEDICATIONS: ERT/SERMS. MM/XR DEXA axial skeleton IMPRESSION: 1. DIAGNOSIS: Normal bone density based on the lowest T-score value of -0.6 in the femoral neck applying World Health Organization criteria. 2. 10-YEAR FRACTURE RISK PREDICTION, FRAX: According to the guidelines, FRAX calculation should only be performed on patients in the osteopenia bone density category. Therefore, FRAX was not performed on this patient. 3. Treatment Recommendations: NOF guidelines recommend consideration for treatment in postmenopausal women and men age 50 and older presenting with the following: -A hip or vertebral (clinical or morphometric) fracture. -T-score less than or equal to -2.5 at the femoral neck or spine after appropriate evaluation to exclude secondary causes. -Low bone mass at the hip or spine and a 10-year fracture probability by FRAX of greater than or equal to 3% for hip fracture or greater than or equal to 20% for major osteoporotic fracture based on the [place] adapted WHO algorithm. 4. Other Recommendations: All treatment decisions require clinical judgment and consideration of individual patient factors, including patient preferences, comorbidities, previous drug use, risk factors not captured in the FRAX model (e.g. frailty, falls, vitamin D deficiency, increased bone turnover, interval significant decline in bone density) and possible under or overestimation of fracture risk by FRAX. FUTURE SCAN RECOMMENDATION: People with diagnosed cases of osteoporosis or at high risk for fracture should have regular bone mineral density tests. For patients eligible for Medicare, routine testing is allowed once every 2 years. The testing frequency can be increased to one year for patients who have rapidly progressing disease, those who are receiving or discontinuing medical therapy to restore bone mass, or have additional risk factors.
== END 2023-08-02 10:42 | disposition home or self-care (01) ==
LOC: HO.MAMMO 10:41
PROVIDERS: PCP Internal Medicine; Visit Provider Internal Medicine
DX: Z78.0 Asymptomatic menopausal state (principal); Z90.722 Acquired absence of ovaries, bilateral; Z90.710 Acquired absence of both cervix and uterus; Z79.810 Long term (current) use of selective estrogen receptor modulators (SERMs)
CPT/HCPCS: 77080

== ENCOUNTER 2023-09-17 07:22 | Outpatient (REF) | payer MEDICARE, OTHER, SELFPAY ==
[2023-09-17 12:05] LABS: Cholesterol 143 mg/dL (<200); HDL Cholesterol 55 mg/dL (>40); LDL Cholesterol Calculated 69 mg/dL (<100); Triglycerides 96 mg/dL (<150)
== END 2023-09-17 07:23 | disposition home or self-care (01) ==
LOC: HO.HMGCLDS 07:22
PROVIDERS: PCP Internal Medicine; Visit Provider Internal Medicine
DX: E78.00 Pure hypercholesterolemia, unspecified (principal)
CPT/HCPCS: 36415; 80061

== ENCOUNTER 2023-09-24 10:04 | Outpatient (AMB) | payer MEDICARE, OTHER, SELFPAY ==
--- NOTE | 2023-09-24 10:24 | MHC.PC.OV ---
Vital Signs 09/24/23 10:26 Height 5 ft 2.9 in Weight 142 lb BMI 25.2 BP 124/68 Blood Pressure Location Lt brachial Position Sitting Pulse 73 Pulse Source Pulse Oximeter Pulse Oximetry (%) 96 Oxygen Delivery Method Room Air Intake Visit Reasons: 3 Month F/U Intake Note: Pt is here today for 3 months follow up visit. Allergies amoxicillin [AMOXICILLIN] Allergy (Intermediate, Verified 09/24/23 10:34) RASH/BURNING/DIFF.BREATHING latex [LATEX] Allergy (Mild, Verified 09/24/23 10:34) RASH Medication List - Last Reconciled 09/24/23 by Celi Sidhu MD albuterol sulfate 90 mcg/actuation (Ventolin HFA) 1 inh inhalation QID PRN cyclosporine 0.05% drps ophthalmic (eye) estradiol 1 patch topical QWEEK fluticasone propionate 50 mcg/actuation 2 sprays intranasal DAILY latanoprost 0.005% 0 drps ophthalmic (eye) rosuvastatin (Crestor) 5 mg PO DAILY sertraline (Zoloft) 50 mg PO DAILY triamcinolone acetonide 0.1% 1 appl topical DAILY valacyclovir (Valtrex) 1,000 mg PO BID 10 days Tobacco use date assessed: 09/24/23 Fall risk assessment: 1 Fall in past year Last assessed Fall Risk: 09/24/23 Dental Screening Dental Screen Date: 09/24/23 Did you have a dental visit in the last 12 months?: Yes Did you have a dental problem in the last 6 months where you did not have access to dental care?: No Was dental information given to patient?: Patient has dentist HPI 3 Month F/U HPI Details Pt presents for f/u of anxiety,CKD 3, hyperlipid, stable on meds. [facility] Medical History Vitamin B 12 deficiency Annual physical exam Vitamin D deficiency Anemia Chronic kidney disease, stage 3 RLL pneumonia Carpal tunnel syndrome Anxiety and depression Osteoarthritis Syncope, vasovagal Hypercholesterolemia Surgical History H/O colonoscopy History of cataract History of total abdominal hysterectomy and bilateral salpingo-oophorectomy Family History Father Diabetes HTN (hypertension) Multiple myeloma CVD (cardiovascular disease) Cancer Mother Diabetes HTN (hypertension) CVD (cardiovascular disease) Brother Diabetes HTN (hypertension) Maternal Grandmother Diabetes Maternal Grandfather No problems noted. Paternal Grandfather No problems noted. Paternal Grandmother No problems noted. Maternal Aunt Diabetes Cancer Social History Housing: House Patient Tobacco Use Status: Former Tobacco user Quit Date: 1978 e-Cigarette/Vaping Use: Never Used Second Hand Smoke Exposure: No Current occupational status: retired Cognitive needs: No Hearing needs: No Vision needs: Yes Questionnaire Thrive Questionnaire Date Thrive assessed: 12/19/22 AUDIT C Alcohol Use Questionnaire (AUDIT-C) 1. How often do you have a drink containing alcohol?: 2-4 times a month 2. How many drinks containing alcohol do you have on a typical day when you are drinking?: 1 or 2 3. How often do you have six or more drinks on one occasion?: Never Total Score: 2 VARSHA-7 AMB Questionnaire VARSHA-7 Date VARSHA - 7 assessed: 12/19/22 Feeling nervous, anxious, or on edge: 0 = Not at all Not being able to stop or control worryin = Not at all Worrying too much about different things: 0 = Not at all Trouble relaxin = Not at all Being so restless that it is hard to sit still: 0 = Not at all Becoming easily annoyed or irritable: 0 = Not at all Feeling afraid as if something awful might happen: 0 = Not at all Total VARSHA-7 score (0-4 normal; 5-9 mild; 10-14 moderate; 15-21 severe): 0 Source: Developed by Drs. Toribio Farrell, Pamela Doan, Matheus Rice and colleagues, with an educational franki from [employer]. Review of Systems Const All systems reviewed & are unremarkable except as noted in HPI and below Reports no additional complaints Eyes Reports no additional complaints ENT Reports no additional complaints Card Reports no additional complaints Resp Reports no additional complaints GI Reports no additional complaints Reports no additional complaints Physical exam (Primary Care) Vital Signs: Last Vital Signs Pulse 73 09/24/23 10:26 BP 124/68 09/24/23 10:26 Pulse Ox 96 09/24/23 10:26 Oxygen Delivery Method Room Air 09/24/23 10:26 BMI result Body Mass Index 25.2 Tobacco/Smoking Status: Tobacco use Status Tobacco use date assessed 09/24/23 09/24/23 10:37 Patient Tobacco Use Status Former Tobacco user 09/24/23 10:37 e-Cigarette/Vaping Use Never Used 09/24/23 10:26 Thrive Assessment: Date of Thrive Assessment Date Thrive assessed 12/19/22 09/24/23 10:26 Const General: no acute distress HENMT Head: Yes normal to inspection Face and sinus: Yes normal facial exam Throat: Yes posterior oropharynx normal Eyes General: appearance normal, both eyes and all related structures Neck Neck: Yes no lymphadenopathy and Yes supple Resp Effort & Inspection: normal respiratory effort Auscultation: clear to auscultation bilaterally Cardio Rhythm: regular rhythm Heart sounds: S1 normal heart sound present and S2 normal heart sound present GI Inspection: Yes normal to inspection Assessment and Plan Assessment & Plan (1) Anxiety: Code(s): F41.9 - Anxiety disorder, unspecified Plan: cont Zoloft (2) Chronic kidney disease, stage 3: Comment: Normal renal ultrasound 01/02, GFR about 50 Code(s): N18.30 - Chronic kidney disease, stage 3 unspecified Plan: avoid nephrotoxins (3) Hypercholesterolemia: Code(s): E78.00 - Pure hypercholesterolemia, unspecified Plan: Decrease Crestor to 5 mg a day follow-up in 5 months with a fasting labs before Orders: Orders Lipid Panel 5 Months D64.9 - Anemia, unspecified, E78.00 - Pure hypercholesterolemia, unspecified, F41.9 - Anxiety disorder, unspecified, N18.30 - Chronic kidney disease, stage 3 unspecified Comprehensive [place]. Panel Fast 5 Months D64.9 - Anemia, unspecified, E78.00 - Pure hypercholesterolemia, unspecified, F41.9 - Anxiety disorder, unspecified, N18.30 - Chronic kidney disease, stage 3 unspecified Complete Blood Count Auto Diff 5 Months D64.9 - Anemia, unspecified, E78.00 - Pure hypercholesterolemia, unspecified, F41.9 - Anxiety disorder, unspecified, N18.30 - Chronic kidney disease, stage 3 unspecified Medications: New rosuvastatin (Crestor) 5 mg PO DAILY 90 tabs 3RF triamcinolone acetonide 0.1% 1 appl topical DAILY 30 grams 1RF Refilled fluticasone propionate 50 mcg/actuation 2 sprays intranasal DAILY 16 grams 3RF estradiol 1 patch topical QWEEK 12 patches 3RF Z90.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
[2023-09-24 10:26] VITALS: BP 124/68; PULSE 73; O2SAT 96; BMI 25.2
== END 2023-09-24 11:18 | disposition home or self-care (01) ==
PROVIDERS: PCP Internal Medicine; Visit Provider Internal Medicine
DX: F41.9 Anxiety disorder, unspecified (principal); N18.30 Chronic kidney disease, stage 3 unspecified; E78.00 Pure hypercholesterolemia, unspecified
CPT/HCPCS: 99214

== ENCOUNTER 2024-02-25 09:58 | Outpatient (AMB) | payer MEDICARE, OTHER, SELFPAY ==
--- NOTE | 2024-02-25 10:00 | A.OFFPC_ITS ---
Vital Signs 02/25/24 10:04 Height 5 ft 3 in Weight 146 lb BMI 25.9 BP 134/74 Blood Pressure Location Lt brachial Position Sitting Pulse 77 Pulse Source Pulse Oximeter Pulse Oximetry (%) 96 Oxygen Delivery Method Room Air Intake Visit Reasons: 5 month follow up Allergies amoxicillin [AMOXICILLIN] Allergy (Intermediate, Verified 02/25/24 10:04) RASH/BURNING/DIFF.BREATHING latex [LATEX] Allergy (Mild, Verified 02/25/24 10:04) RASH Medication List - Last Reconciled 02/25/24 by Celi Sidhu MD albuterol sulfate 90 mcg/actuation (Ventolin HFA) 1 inh inhalation QID PRN cyclosporine 0.05% drps ophthalmic (eye) estradiol 1 patch topical QWEEK fluticasone propionate 50 mcg/actuation 2 sprays intranasal DAILY latanoprost 0.005% 0 drps ophthalmic (eye) rosuvastatin (Crestor) 5 mg PO DAILY sertraline (Zoloft) 50 mg PO DAILY triamcinolone acetonide 0.1% 1 appl topical DAILY valacyclovir (Valtrex) 1,000 mg PO BID 10 days Tobacco use date assessed: 09/24/23 Dental Screening Dental Screen Date: 09/24/23 HPI 5 month follow up HPI Details Pt presents for hyperlipid and anxiety, stable on meds. [facility] Medical History Vitamin B 12 deficiency Annual physical exam Vitamin D deficiency Anemia Chronic kidney disease, stage 3 RLL pneumonia Carpal tunnel syndrome Anxiety and depression Osteoarthritis Syncope, vasovagal Hypercholesterolemia Surgical History H/O colonoscopy History of cataract History of total abdominal hysterectomy and bilateral salpingo-oophorectomy Family History Father Diabetes HTN (hypertension) Multiple myeloma CVD (cardiovascular disease) Cancer Mother Diabetes HTN (hypertension) CVD (cardiovascular disease) Brother Diabetes HTN (hypertension) Maternal Grandmother Diabetes Maternal Grandfather No problems noted. Paternal Grandfather No problems noted. Paternal Grandmother No problems noted. Maternal Aunt Diabetes Cancer Social History (Reviewed 02/25/24 @ 10:13 by Libertad Hogan [facility]) Housing: House Patient Tobacco Use Status: Former Tobacco user e-Cigarette/Vaping Use: Never Used Second Hand Smoke Exposure: No service: No Current occupational status: retired Cognitive needs: No Hearing needs: No Vision needs: Yes Questionnaire PHQ-9 Over the last 2 weeks, how often have you been bothered by any of the following problems? 1. Little interest or pleasure in doing things: not at all 2. Feeling down, depressed, or hopeless: not at all 3. Trouble falling or staying asleep, or sleeping too much: not at all 4. Feeling tired or having little energy: not at all 5. Poor appetite or overeating: not at all 6. Feeling bad about yourself - or that you are a failure or have let yourself or your family down: not at all 7. Trouble concentrating on things, such as reading the newspaper or watching television: not at all 8. Moving or speaking so slowly that other people could have noticed. Or the opposite - being so fidgety or restless that you have been moving around a lot more than usual: not at all 9. Thoughts that you would be better off or of hurting yourself in some way: not at all Total score: 0 Depression Screening Interpretation: Negative Depression Screening Done: Yes Source: Developed by Drs. Toribio Farrell, Pamela Doan, Matheus Rice and colleagues, with an educational franki from [employer]. Thrive Questionnaire Date Thrive assessed: 02/25/24 I am a: Patient What is your living situation today?: I choose not to answer this question Within the past 12 months, did the food you bought not last and you didn't have the money to get more?: I choose not to answer this question Within the past 12 months, did you worry whether your food would run out before you got money to buy more?: I choose not to answer this question Do you have trouble paying for medicines?: I choose not to answer this question Do you have trouble getting transportation to medical appointments?: I choose not to answer this question Do you have trouble paying your heating and electricity bill?: I choose not to answer this question Do you have trouble taking care of your child, family member or friend?: I choose not to answer this question Do you have trouble with day-to-day activities such as bathing, preparing meals, shopping, managing finances, etc.?: I choose not to answer this question Are you currently unemployed and looking for a job?: I choose not to answer this question Are you interested in more education?: I choose not to answer this question Please select the resources that you would like help with: Housing/Snf Currently or been in a relationship where the following occur: I choose not to answer THRIVE Score: 0 AUDIT C Alcohol Use Questionnaire (AUDIT-C) 1. How often do you have a drink containing alcohol?: Monthly or less 2. How many drinks containing alcohol do you have on a typical day when you are drinking?: 1 or 2 3. How often do you have six or more drinks on one occasion?: Never Total Score: 1 VARSHA-7 AMB Questionnaire VARSHA-7 Date VARSHA - 7 assessed: 02/25/24 Feeling nervous, anxious, or on edge: 0 = Not at all Not being able to stop or control worryin = Not at all Worrying too much about different things: 0 = Not at all Trouble relaxin = Not at all Being so restless that it is hard to sit still: 0 = Not at all Becoming easily annoyed or irritable: 0 = Not at all Feeling afraid as if something awful might happen: 0 = Not at all Total VARSHA-7 score (0-4 normal; 5-9 mild; 10-14 moderate; 15-21 severe): 0 Source: Developed by Drs. Toribio Farrell, Pamela Doan, Matheus Rice and colleagues, with an educational franki from [employer]. VARSHA-7 Assessment Billing VARSHA-7 Assessment Tool: VARSHA-7 Assessment 41876 Review of Systems Const All systems reviewed & are unremarkable except as noted in HPI and below Reports no additional complaints Eyes Reports no additional complaints ENT Reports no additional complaints Card Reports no additional complaints Resp Reports no additional complaints GI Reports no additional complaints Reports no additional complaints Physical exam (Primary Care) Vital Signs: Last Vital Signs Pulse 77 02/25/24 10:04 BP 134/74 02/25/24 10:04 Pulse Ox 96 02/25/24 10:04 Oxygen Delivery Method Room Air 02/25/24 10:04 BMI result Body Mass Index 25.9 Tobacco/Smoking Status: Tobacco use Status Tobacco use date assessed 09/24/23 02/25/24 10:00 Patient Tobacco Use Status Former Tobacco user 02/25/24 10:00 e-Cigarette/Vaping Use Never Used 02/25/24 10:00 PHQ-9: PHQ-9 Score PHQ-9: Total score 0 02/25/24 10:10 Depression Screening Interpretation: Negative Thrive Assessment: Date of Thrive Assessment Date Thrive assessed 02/25/24 02/25/24 10:10 Currently or been in a relationship where the following occur: I choose not to answer Const General: no acute distress HENMT Head: Yes normal to inspection Eyes General: appearance normal, both eyes and all related structures Resp Effort & Inspection: normal respiratory effort Auscultation: clear to auscultation bilaterally Cardio Rhythm: regular rhythm Heart sounds: S1 normal heart sound present and S2 normal heart sound present GI Inspection: Yes normal to inspection Assessment and Plan Assessment & Plan (1) Hypercholesterolemia: Code(s): E78.00 - Pure hypercholesterolemia, unspecified Plan: Continue crestor (2) Chronic kidney disease, stage 3: Comment: Normal renal ultrasound 01/02, GFR about 50 Code(s): N18.30 - Chronic kidney disease, stage 3 unspecified Plan: Avoid nephrotoxins monitor renal function (3) Vitamin D deficiency: Code(s): E55.9 - Vitamin D deficiency, unspecified Plan: Continue vitamin-D. (4) Annual physical exam: Code(s): Z00.00 - Encounter for general adult medical examination without abnormal findings (5) Anxiety: Code(s): F41.9 - Anxiety disorder, unspecified Plan: Continue Zoloft Orders: Orders Complete Blood Count Auto Diff 4 Months E55.9 - Vitamin D deficiency, unspecified, E78.00 - Pure hypercholesterolemia, unspecified, N18.30 - Chronic kidney disease, stage 3 unspecified, Z00.00 - Encounter for general adult medical examination without abnormal findings Vitamin D 25-OH Total 4 Months E55.9 - Vitamin D deficiency, unspecified, E78.00 - Pure hypercholesterolemia, unspecified, N18.30 - Chronic kidney disease, stage 3 unspecified, Z00.00 - Encounter for general adult medical examination without abnormal findings Comprehensive [place]. Panel Fast 4 Months E55.9 - Vitamin D deficiency, unspecified, E78.00 - Pure hypercholesterolemia, unspecified, N18.30 - Chronic kidney disease, stage 3 unspecified, Z00.00 - Encounter for general adult medical examination without abnormal findings Lipid Panel 4 Months E55.9 - Vitamin D deficiency, unspecified, E78.00 - Pure hypercholesterolemia, unspecified, N18.30 - Chronic kidney disease, stage 3 un specified, Z00.00 - Encounter for general adult medical examination without abnormal findings TSH reflex Free T4 4 Months E55.9 - Vitamin D deficiency, unspecified, E78.00 - Pure hypercholesterolemia, unspecified, N18.30 - Chronic kidney disease, stage 3 unspecified, Z00.00 - Encounter for general adult medical examination without abnormal findings Coding Level of Care Code Est Pt Level 4 (96155) Diagnoses Hypercholesterolemia E78.00 Chronic kidney disease, stage 3 N18.30 Vitamin D deficiency E55.9 Annual physical exam Z00.00 Anxiety F41.9 Additional Codes VARSHA-7 Assessment Billing - VARSHA-7 Assessment Tool: VARSHA-7 Assessment 07167 ([id number])
[2024-02-25 10:04] VITALS: BP 134/74; PULSE 77; O2SAT 96; BMI 25.9
== END 2024-02-25 10:53 | disposition home or self-care (01) ==
PROVIDERS: PCP Internal Medicine; Visit Provider Internal Medicine
DX: E78.00 Pure hypercholesterolemia, unspecified (principal); N18.30 Chronic kidney disease, stage 3 unspecified; E55.9 Vitamin D deficiency, unspecified; F41.9 Anxiety disorder, unspecified
CPT/HCPCS: 99214

== ENCOUNTER 2024-04-10 10:47 | Outpatient (REF) | payer MEDICARE, OTHER, SELFPAY ==
--- NOTE | ~2024-04-10 | MM_ITS ---
EXAMINATION: MM SCREENING DIGITAL BREAST TOMOSYNTHESIS, BILATERAL CLINICAL INFORMATION: Screening. Asymptomatic. COMPARISON: Mammography: Comparison is made with available priors TECHNIQUE: Digital breast mammography with tomosynthesis is performed in both the craniocaudal and mediolateral oblique views along with computer-aided detection (CAD). FINDINGS: There are scattered areas of fibroglandular density (ACR BI-RADS breast composition Category b). There are no significant masses, abnormal calcifications, or other abnormalities. MM/MM tomosynthesis screening BI IMPRESSION: No mammographic evidence of malignancy. ASSESSMENT: BI-RADS BI-RADS 1 - Negative RECOMMENDATION: Routine annual mammography screening. 1 year F/U This examination should not preclude the clinical evaluation of a suspicious palpable abnormality. This patient's information was entered into a reminder system with a target due date for their next mammogram. Electronically signed by: Taylor Bogres DO 04/21/2024 05:34 PM EDT
== END 2024-04-10 10:48 | disposition home or self-care (01) ==
LOC: HO.MAMMO 10:47
PROVIDERS: PCP Internal Medicine; Visit Provider Internal Medicine
DX: Z12.31 Encounter for screening mammogram for malignant neoplasm of breast (principal)
CPT/HCPCS: 77063; 77067

== ENCOUNTER → 2024-04-10 11:00 | Outpatient (BNV) | payer MEDICARE, OTHER, SELFPAY | PROVIDERS: PCP Internal Medicine; Visit Provider Internal Medicine | DX: Z12.31 Encounter for screening mammogram for malignant neoplasm of breast (principal) | CPT/HCPCS: 77063; 77067 ==

== ENCOUNTER 2024-06-25 08:33 | Outpatient (REF) | payer MEDICARE, OTHER, SELFPAY ==
[2024-06-25 09:57] LABS: MANUAL DIFF FLAG NO
[2024-06-25 10:00] LABS: Basophils Percent Auto 0.7 % (0-2); Eosinophils Absolute Auto 0.2 X10*3/uL (0.0-0.4); Eosinophils Percent Auto 4.1 % (0-4); Hematocrit 38.5 % (37.0-47.0); Hemoglobin 12.9 g/dl (12.0-16.0); Imm Gran Abs Auto 0.01 X10*3/uL (0.00-0.03); Imm Gran Pct Auto 0.2 % (0.0-0.4); Lymphocytes Absolute Auto 1.8 X10*3/uL (1.2-4.9); Lymphocytes Percent Auto 33.2 % (20-40); Mean Corpuscular HGB Conc 33.5 g/dl (31.0-35.0); Mean Corpuscular Hemoglobin 31.9 pg (27.0-33.0); Mean Corpuscular Volume 95.3 fL (80.0-98.0); Monocytes Absolute Auto 0.3 X10*3/uL (0.1-1.2); Monocytes Percent Auto 6.1 % (2-11); Neutrophils Percent Auto 55.7 % (45-73); Platelet Count 213 X10*3/uL (160-400); Red Blood Count 4.04 X10*6/uL (4.20-5.50); Red Cell Distribution Width 12.6 % (11.0-16.0); White Blood Count 5.4 X10*3/uL (4.8-10.8)
[2024-06-25 10:57] LABS: Alanine Aminotransferase 19 U/L (0-31); Albumin Level 4.1 g/dL (3.5-5.0); Alkaline Phosphatase 59 U/L (39-117); Anion Gap 10 (12-20); Aspartate Amino Transferase 23 U/L (5-31); Bilirubin Total 0.4 mg/dL (0.0-1.0); Blood Urea Nitrogen 27 mg/dL (9-16); Calcium 9.6 mg/dL (8.4-10.2); Carbon Dioxide 30 mmol/L (22-29); Chloride 103 mmol/L (96-108); Cholesterol 183 mg/dL (<200); Estimated Glomerular Filt Rate 42; Glucose Fasting 96 mg/dL (60-99); HDL Cholesterol 56 mg/dL (>40); LDL Cholesterol Calculated 103 mg/dL (<100); Potassium 4.3 mmol/L (3.3-5.1); Sodium 139 mmol/L (135-145); Total Protein 7.1 g/dL (6.5-8.0); Triglycerides 122 mg/dL (<150)
[2024-06-25 11:15] LABS: TSH reflex Free T4 2.46 uIU/mL (0.32-4.0); Vitamin D 25-OH Total 45.5 ng/mL (>30)
== END 2024-06-25 08:34 | disposition home or self-care (01) ==
LOC: HO.HMGCLDS 08:33
PROVIDERS: PCP Internal Medicine; Visit Provider Internal Medicine
DX: Z00.00 Encounter for general adult medical examination without abnormal findings (principal); E55.9 Vitamin D deficiency, unspecified; N18.30 Chronic kidney disease, stage 3 unspecified; E78.00 Pure hypercholesterolemia, unspecified
CPT/HCPCS: 36415; 80053; 80061; 82306; 84443; 85025

== ENCOUNTER 2024-06-30 08:49 | Outpatient (AMB) | payer MEDICARE, OTHER, SELFPAY ==
[2024-06-30 08:51] VITALS: BP 124/70; PULSE 83; O2SAT 97; BMI 26.4
--- NOTE | 2024-06-30 08:51 | AM.OFFVISMDC ---
Intake Vital Signs 06/30/24 08:51 Height 5 ft 3 in Weight 149 lb BMI 26.4 BP 124/70 Blood Pressure Location Lt brachial Position Sitting Pulse 83 Pulse Source Pulse Oximeter Pulse Oximetry (%) 97 Oxygen Delivery Method Room Air Intake Visit Reasons: [facility] G0439 Allergies amoxicillin [AMOXICILLIN] Allergy (Intermediate, Verified 06/30/24 08:55) RASH/BURNING/DIFF.BREATHING latex [LATEX] Allergy (Mild, Verified 06/30/24 08:55) RASH Medication List - Last Reconciled 06/30/24 by Celi Sidhu MD albuterol sulfate 90 mcg/actuation (Ventolin HFA) 1 inh inhalation QID PRN cyclosporine 0.05% drps ophthalmic (eye) diazepam (Valium) 5 mg PO ONCE estradiol 1 patch topical QWEEK fluticasone propionate 50 mcg/actuation 2 sprays intranasal DAILY latanoprost 0.005% 0 drps ophthalmic (eye) rosuvastatin (Crestor) 5 mg PO DAILY sertraline (Zoloft) 50 mg PO DAILY triamcinolone acetonide 0.1% 1 appl topical DAILY valacyclovir (Valtrex) 1,000 mg PO BID 10 days HPI [facility] G0439 HPI Details Initiated the conversation about Advanced Directives. Advanced Directives help? patients prepare for current and future decisions about their medical treatment? and place of care. Discussed with patient that it is a process where a patients? current condition and prognosis are reviewed, their wishes for information? regarding their illness are elicited, and likely medical dilemmas are presented? and options discussed. The form can be amended as needed, reviewed yearly and? make changes as needed IPPE/AWV ? year old presents? for her ? Annual? Wellness Visit, initial visit.? Medical / Social History Reviewed? Past Medical History ?Yes? . ? [place]? of Care / Care Team list updated ?Yes . ? Surgical/Hospitalization? History ?Yes . ? Current Medications? (including OTC and supplements) ?Yes . ? Family History ?Yes? . ? Tobacco? Control form ?Yes . ? AUDIT-C (Alcohol use) form? ?Yes . ? Illicit drug use in Social? History ?Yes . ? Current diagnosis of? depression? ?No ? Appropriate PHQ2/PHQ9? completed ?Yes . ? Data entered by ?Medical? Marriage And Family Teacher and reviewed by provider ? Fall Risk ? Fall? History? Have you had any falls with? injury in the past year? ?No . ? Have you had two or more? falls in the past year? ?No . ? Fall Risk Assessment: ?No? falls in the past year . ? HRA filled out by? the patient, reviewed by Provider and scanned. ? IPPE/AWV ? Balance? [place]? ?Yes . ? Tandem? walk ?Yes . ? Walk and? Turn ?Yes . ? Rise from? sit to stand ?Yes . ?Vision? Corrective? lens ?Yes ? Vision? screen ? Up-to-date, has an appointment [] for vision? screening and glaucoma screening ?Hearing? Whisper? test ?pass .? Initiated the conversation about Advanced Directives. Advanced Directives help? patients prepare for current and future decisions about their medical treatment? and place of care. Discussed with patient that it is a process where a patients? current condition and prognosis are reviewed, their wishes for information? regarding their illness are elicited, and likely medical dilemmas are presented? and options discussed. The form can be amended as needed, reviewed yearly and? make changes as needed Written? Plan?Completed. See Patient? Documents. [facility] Medical History Vitamin B 12 deficiency Annual physical exam Vitamin D deficiency Anemia Chronic kidney disease, stage 3 RLL pneumonia Carpal tunnel syndrome Anxiety and depression Osteoarthritis Syncope, vasovagal Hypercholesterolemia Surgical History H/O colonoscopy History of cataract History of total abdominal hysterectomy and bilateral salpingo-oophorectomy Family History Father Diabetes HTN (hypertension) Multiple myeloma CVD (cardiovascular disease) Cancer Mother Diabetes HTN (hypertension) CVD (cardiovascular disease) Brother Diabetes HTN (hypertension) Maternal Grandmother Diabetes Maternal Grandfather No problems noted. Paternal Grandfather No problems noted. Paternal Grandmother No problems noted. Maternal Aunt Diabetes Cancer Social History Housing: House Patient Tobacco Use Status: Former Tobacco user e-Cigarette/Vaping Use: Never Used Second Hand Smoke Exposure: No service: No Current occupational status: retired Cognitive needs: No Hearing needs: No Vision needs: Yes Questionnaire Medicare Wellness Checkup What is your age?: 82 or older What gender do you identify with?: female During the past 4 weeks, how much have you been bothered by emotional problems such as feeling anxious, depressed, irritable, sad or downhearted, and blue?: not at all During the past 4 weeks, has your physical & emotional health limited your social activities with family, friends, neighbors, or groups?: not at all During the past 4 weeks, how much bodily pain have you generally had?: no pain During the past 4 weeks, was someone available to help you if you needed & wanted help?: no, not at all During the past 4 weeks, what was the hardest physical activity you could do for at least 2 minutes?: very heavy Can you get to places out of walking distance without help? (For eg., can you travel alone on buses, taxis or drive your car?): Yes Can you go shopping for groceries or clothes without someone's help?: Yes Can you prepare your own meals?: Yes Can you do your housework without help?: Yes Because of any health problems, do you need the help of another person with your personal care needs such as eating, bathing, dressing or getting around the house?: No Can you handle your own money without help?: Yes During the past 4 weeks, how would you rate your health in general?: excellent During the past 4 weeks how have things been going for you?: good & bad parts about equal Are you having difficulties driving your car?: no Do you always fasten your seat belt when you are in a car?: yes, usually During past 4 weeks, have you been bothered by the following: never: Sexual problems?, Trouble eating well?, Teeth or denture problems?, Problems using the telephone? and Tiredness or fatigue? and seldom: Falling or dizzy when standing up Have you fallen 2 or more times in the past year?: Yes Are you afraid of falling?: No Are you a smoker?: no During the past 4 weeks, how many drinks of wine, beer, or other alcoholic beverages did you have?: 10 or more per week Do you exercise for about 20 minutes 3 or more times a week?: yes, some of the time Have you been given information to help with the following?: no: Hazards in your house that might hurt you? and no: Keeping track of your medications? How often do you have trouble taking medicines the way you have been told to take them?: I always take medicine as prescribed How confident are you that you can control & manage most of your health problems?: very confident What is your race?: White Mini Mental State Exam (MMSE) Orientation What is the (year) (season) (date) (day) (month)?: year, season, date, day and month Where are we (state) (county) (town or city) (hospital) (floor)?: state, county, town or city, hospital/clinic and floor Registration Name of 3 unrelated objects clearly and slowly, then ask patient to repeat all 3 of them. (1st repeat determines score. Make sure they can repeat all three): object 1, object 2 and object 3 Attention & Calculation (CHOOSE ONE) Spell WORLD backwards (DLROW): 5 letters Recall Ask patient to repeat the 3 items from question #3.: object 1, object 2 and object 3 Language Show patient a wristwatch & ask what it is. Repeat for pencil.: watch and pencil Ask the patient to repeat the phrase 'No ifs, ands, or buts' after you.: correct Ask the patient to 'take a piece of paper with their right hand' 'fold paper in half' 'place paper on floor': take paper in right hand, fold paper in half and place paper on floor Print the sentence 'CLOSE YOUR EYES' on a piece. If patient actually closes eyes then score.: followed written direction Give patient a blank piece of paper & ask to write a sentence. Score if it contains a noun & verb.: sentence contains subject and verb Score Score: 29 Activity of Daily Living Bathing - sponge bath, tub bath or shower: receives no assistance (gets in/out by self, if usual bathing means Dressing - getting clothes from closets & drawers, including inner/outer garments & fasteners.: gets clothes & gets completely dressed without help Toileting - going to the 'toilet room' for urine/bowel elimination & cleaning self/arranging clothes: goes to toilet room, cleans self, arranges clothes without help Transfer: moves in & out of bed and chair without help (may use support object) Continence: controls urination/bowel movements completely by self Feeding: feeds self without help Total Score: 0 Information obtained from: patient Using telephone: independent Traveling: independent Shopping: independent Preparing meals: independent Housework: independent Taking medicine: independent Managing money: independent PHQ-9 Over the last 2 weeks, how often have you been bothered by any of the following problems? 1. Little interest or pleasure in doing things: not at all 2. Feeling down, depressed, or hopeless: not at all 3. Trouble falling or staying asleep, or sleeping too much: not at all 4. Feeling tired or having little energy: not at all 5. Poor appetite or overeating: not at all 6. Feeling bad about yourself - or that you are a failure or have let yourself or your family down: not at all 7. Trouble concentrating on things, such as reading the newspaper or watching television: not at all 8. Moving or speaking so slowly that other people could have noticed. Or the opposite - being so fidgety or restless that you have been moving around a lot more than usual: not at all 9. Thoughts that you would be better off or of hurting yourself in some way: not at all Total score: 0 Depression Screening Interpretation: Negative Depression Screening Done: Yes 94272 - PHQ-9 Billing: Yes Source: Developed by Drs. Toribio Farrell, Pamela Doan, Matheus Rice and colleagues, with an educational franki from [employer]. Review of Systems Const All systems reviewed & are unremarkable except as noted in HPI and below Eyes Reports no additional complaints ENT Reports no additional complaints Card Reports no additional complaints Resp Reports no additional complaints GI Reports no additional complaints Reports no additional complaints Physical Exam Vital Signs: Last Vital Signs Pulse 83 06/30/24 08:51 BP 124/70 06/30/24 08:51 Pulse Ox 97 06/30/24 08:51 Oxygen Delivery Method Room Air 06/30/24 08:51 BMI result Body Mass Index 26.4 Const General: no acute distress HEENT Head: Yes normal to inspection Ears: hearing grossly normal bilaterally Neck Neck: Yes no lymphadenopathy and Yes supple Resp Effort & Inspection: normal respiratory effort Auscultation: clear to auscultation bilaterally Cardio Rhythm: regular rhythm Heart sounds: S1 normal heart sound present and S2 normal heart sound present GI Inspection: Yes normal to inspection Palpation (GI): Soft to palpation Percussion: Yes normal to percussion Auscultation: normal bowel sounds Extrem General: Yes no clubbing, cyanosis or edema Assessment & Plan Assessment & Plan (1) Annual physical exam: Code(s): Z00.00 - Encounter for general adult medical examination without abnormal findings Plan: well balanced diet, regular exercise, (2) Chronic kidney disease, stage 3: Comment: Normal renal ultrasound 6/20, GFR about 50 Code(s): N18.30 - Chronic kidney disease, stage 3 unspecified Plan: avoid nephrotoxins, monitor renal function (3) Hypercholesterolemia: Code(s): E78.00 - Pure hypercholesterolemia, unspecified Plan: cont statin (4) Anxiety: Code(s): F41.9 - Anxiety disorder, unspecified Plan: Patient will taper down sertraline Orders: Orders Complete Blood Count Auto Diff 6 Months E78.00 - Pure hypercholesterolemia, unspecified, N18.30 - Chronic kidney disease, stage 3 unspecified Comprehensive [place]. Panel Fast 6 Months E78.00 - Pure hypercholesterolemia, unspecified, N18.30 - Chronic kidney disease, stage 3 unspecified Lipid Panel 6 Months E78.00 - Pure hypercholesterolemia, unspecified, N18.30 - Chronic kidney disease, stage 3 unspecified Medications: Refilled rosuvastatin (Crestor) 5 mg PO DAILY 90 tabs 3RF Quality Reporting (2019) Depression/Bipolar (159/160/161/177) PHQ-9: Total score: 0 Coding Level of Care Code Medicare Subsequent (G0439) Diagnoses Annual physical exam Z00.00 Chronic kidney disease, stage 3 N18.30 Hypercholesterolemia E78.00 Anxiety F41.9 CPT Codes Advance Care Planning - Advance Care Planning discussion: On file, no changes ([id number]) Advance Care Planning - Time spent: 1-15 minutes, on File ([id number]) Additional Codes PHQ-9 - 61561 - PHQ-9 Billing: Yes ([id number]) Advance Care Planning Advance Care Planning discussion: On file, no changes Forms completed: Health Care Proxy Time spent: 1-15 minutes, on File Did not discuss due to Cultural/Spiritual beliefs: Yes
== END 2024-06-30 09:15 | disposition home or self-care (01) ==
PROVIDERS: PCP Internal Medicine; Visit Provider Internal Medicine
DX: Z00.00 Encounter for general adult medical examination without abnormal findings (principal); N18.30 Chronic kidney disease, stage 3 unspecified; E78.00 Pure hypercholesterolemia, unspecified; F41.9 Anxiety disorder, unspecified

== ENCOUNTER → 2024-06-30 08:49 | Outpatient (BNVA) | payer MEDICARE, OTHER, SELFPAY | PROVIDERS: PCP Internal Medicine; Visit Provider Internal Medicine | DX: Z00.00 Encounter for general adult medical examination without abnormal findings (principal); F41.9 Anxiety disorder, unspecified; E78.00 Pure hypercholesterolemia, unspecified; N18.30 Chronic kidney disease, stage 3 unspecified | CPT/HCPCS: 96127 ==

== ENCOUNTER → 2024-11-13 11:07 | Outpatient (RCR) | payer MEDICARE, OTHER, SELFPAY ==
--- NOTE | 2020-05-05 17:43 | MHC.PT.EP ---
[facility] [place] Office [place] Office [place] Office [address] Rosalinda Kapoor [address] [phone] F: [phone] F: [phone] F: [phone] F: [phone] Physical Therapy Plan of Care Date of Evaluation: 05/05/20 Date of Surgery: NA Diagnosis: LBP Assessment: Pt is a 79 y/o female referred to PT for eval and treat of LBP who presents with signs and Sx consistent with Dx resulting in decreased tolerance for performing transitional movements and transfers secondary to decreased trunk ROM, decreased core strength, increased posterior mm tension and spasm, compensated transfers, and pain. Pt is deemed an appropriate candidate to receive skilled PT services to address her physical impairments to improve her functional ability which was unrestricted with transfers. Frequency and Duration: The patient will be seen 2x/ wk x 5 wks. Short Term Goals: In 1 week: initiate HEP with evidence of compliance. In 3 weeks: Spasm of para spinal mms resolved. Preschool Teacher Aide Goals: In 5 weeks: I with HEP. In 5 weeks: Pt will perform sit<> stand and supine <> sit transfers with managed symptoms. Treatment Plan: Modalities to reduce pain, spasms and effusion. Manual therapy to restore motion and function. Therapeutic exercise to improve strength and flexibility. Neuromuscular re-education for posture and balance. Therapeutic activities to return to functional activities of daily living. Please sign and return to therapist. Thank you for your referral.
--- NOTE | 2020-07-01 13:13 | MHC.PT.DC ---
[facility] [place] Office [place] Office [place] Office [address] Blaine Kapoor 140 [facility] [phone] F: [phone] F: [phone] F: [phone] F: [phone] Physical Therapy Discharge Report Diagnosis: LBP Date of Surgery: NA Date of Evaluation: 05/05/20 Date of Discharge: Treatments to Date: 8 Cancellations to Date: 0 No Shows to Date: 0 Discharge Status: Achieved Goals Improved Function Independent with HEP Physician Discontinued Tx Discharge Summary: Jessica has been an active and motivated participant in her therapy in and out of the clinic. She has met all of her therapeutic goals, is I with her home program and in agreement with DC at this time. Electronically signed by: Franck Delgado PT. Please sign and return to therapist. Thank you for your referral.
== END | disposition home or self-care (01) ==
LOC: HO.PTCHIC 05-05 14:44
PROVIDERS: PCP Internal Medicine; Visit Provider Internal Medicine
DX: M54.5 Low back pain (principal)
CPT/HCPCS: 97014; 97110; 97112; 97161

== ENCOUNTER 2024-12-24 07:33 | Outpatient (REF) | payer MEDICARE, OTHER, SELFPAY ==
[2024-12-24 10:27] LABS: MANUAL DIFF FLAG NO
[2024-12-24 10:39] LABS: Basophils Percent Auto 0.6 % (0-2); Eosinophils Absolute Auto 0.2 X10*3/uL (0.0-0.4); Eosinophils Percent Auto 4.5 % (0-4); Hematocrit 38.8 % (37.0-47.0); Hemoglobin 13.2 g/dl (12.0-16.0); Imm Gran Abs Auto 0.01 X10*3/uL (0.00-0.03); Imm Gran Pct Auto 0.2 % (0.0-0.4); Lymphocytes Absolute Auto 1.8 X10*3/uL (1.2-4.9); Lymphocytes Percent Auto 38.7 % (20-40); Mean Corpuscular Hemoglobin 32.2 pg (27.0-33.0); Mean Corpuscular Volume 94.6 fL (80.0-98.0); Mean Platelet Volume 10.4 fL (9.4-12.3); Monocytes Absolute Auto 0.3 X10*3/uL (0.1-1.2); Monocytes Percent Auto 7.1 % (2-11); Neutrophils Absolute Auto 2.3 x10*3/uL (2.0-8.3); Neutrophils Percent Auto 48.9 % (45-73); Platelet Count 205 X10*3/uL (160-400); Red Cell Distribution Width 12.5 % (11.0-16.0); White Blood Count 4.7 X10*3/uL (4.8-10.8)
[2024-12-24 10:44] LABS: Alanine Aminotransferase 17 U/L (0-31); Albumin Level 4.3 g/dL (3.5-5.0); Alkaline Phosphatase 49 U/L (39-117); Anion Gap 8 (12-20); Aspartate Amino Transferase 23 U/L (5-31); Bilirubin Total 0.4 mg/dL (0.0-1.0); Blood Urea Nitrogen 22 mg/dL (9-16); Calcium 9.7 mg/dL (8.4-10.2); Carbon Dioxide 30 mmol/L (22-29); Chloride 102 mmol/L (96-108); Cholesterol 156 mg/dL (<200); Estimated Glomerular Filt Rate 43; Glucose Fasting 96 mg/dL (60-99); HDL Cholesterol 57 mg/dL (>40); LDL Cholesterol Calculated 81 mg/dL (<100); Sodium 136 mmol/L (135-145); Total Protein 6.9 g/dL (6.5-8.0); Triglycerides 91 mg/dL (<150)
== END 2024-12-24 07:34 | disposition home or self-care (01) ==
LOC: HO.HMGCLDS 07:33
PROVIDERS: PCP Internal Medicine; Visit Provider Internal Medicine
DX: N18.30 Chronic kidney disease, stage 3 unspecified (principal); E78.00 Pure hypercholesterolemia, unspecified
CPT/HCPCS: 36415; 80053; 80061; 85025

== ENCOUNTER 2024-12-30 09:07 | Outpatient (AMB) | payer MEDICARE, OTHER, SELFPAY ==
[2024-12-30 09:09] VITALS: BP 126/70; PULSE 67; RESP 18; TEMP 36.8; O2SAT 96; BMI 27.6
--- NOTE | 2024-12-30 09:09 | A.OFFPC_ITS ---
Vital Signs 12/30/24 09:09 Height 5 ft 3 in Weight 156 lb BMI 27.6 BP 126/70 Blood Pressure Location Lt brachial Position Sitting Respiration 18 Pulse 67 Pulse Source Pulse Oximeter Temp 98.2 F Temp Source Oral Pulse Oximetry (%) 96 Oxygen Delivery Method Room Air Intake Visit Reasons: 6 months f/u Intake Note: Pt is here today for 6 months follow up visit. Allergies amoxicillin [AMOXICILLIN] Allergy (Intermediate, Verified 12/30/24 09:19) RASH/BURNING/DIFF.BREATHING latex [LATEX] Allergy (Mild, Verified 12/30/24 09:19) RASH Medication List - Last Reconciled 12/30/24 by Celi Sidhu MD albuterol sulfate 90 mcg/actuation (Ventolin HFA) 1 inh inhalation QID PRN cyclosporine 0.05% drps ophthalmic (eye) diazepam (Valium) 5 mg PO ONCE estradiol 1 patch topical QWEEK fluticasone propionate 50 mcg/actuation 2 sprays intranasal DAILY latanoprost 0.005% 0 drps ophthalmic (eye) rosuvastatin (Crestor) 5 mg PO DAILY triamcinolone acetonide 0.1% 1 appl topical DAILY valacyclovir (Valtrex) 1,000 mg PO BID 10 days Tobacco use date assessed: 12/30/24 Fall risk assessment: No Falls in past year Last assessed Fall Risk: 12/30/24 Dental Screening Dental Screen Date: 12/30/24 Did you have a dental visit in the last 12 months?: Yes Did you have a dental problem in the last 6 months where you did not have access to dental care?: No Was dental information given to patient?: Patient has dentist HPI 6 months f/u HPI Details Pt for hyperlipid controlled on Crestor and CKD 3, stable. PFSH Medical History Vitamin B 12 deficiency Annual physical exam Vitamin D deficiency Anemia Chronic kidney disease, stage 3 RLL pneumonia Carpal tunnel syndrome Anxiety and depression Osteoarthritis Syncope, vasovagal Hypercholesterolemia Surgical History H/O colonoscopy History of cataract History of total abdominal hysterectomy and bilateral salpingo-oophorectomy Family History Father Diabetes HTN (hypertension) Multiple myeloma CVD (cardiovascular disease) Cancer Mother Diabetes HTN (hypertension) CVD (cardiovascular disease) Brother Diabetes HTN (hypertension) Maternal Grandmother Diabetes Maternal Grandfather No problems noted. Paternal Grandfather No problems noted. Paternal Grandmother No problems noted. Maternal Aunt Diabetes Cancer Social History Housing: House Patient Tobacco Use Status: Former Tobacco user e-Cigarette/Vaping Use: Never Used Second Hand Smoke Exposure: No service: No Current occupational status: retired Cognitive needs: No Hearing needs: No Vision needs: Yes Questionnaire PHQ-9 Over the last 2 weeks, how often have you been bothered by any of the following problems? 1. Little interest or pleasure in doing things: not at all 2. Feeling down, depressed, or hopeless: not at all 3. Trouble falling or staying asleep, or sleeping too much: not at all 4. Feeling tired or having little energy: not at all 5. Poor appetite or overeating: not at all 6. Feeling bad about yourself - or that you are a failure or have let yourself or your family down: not at all 7. Trouble concentrating on things, such as reading the newspaper or watching television: not at all 8. Moving or speaking so slowly that other people could have noticed. Or the opposite - being so fidgety or restless that you have been moving around a lot more than usual: not at all 9. Thoughts that you would be better off or of hurting yourself in some way: not at all Total score: 0 Depression Screening Interpretation: Negative Depression Screening Done: Yes 76429 - PHQ-9 Billing: Yes Source: Developed by Drs. Toribio Farrell, Pamela Doan, Matheus Rice and colleagues, with an educational franki from [employer]. Thrive Questionnaire Date Thrive assessed: 12/30/24 I am a: Patient What is your living situation today?: I have a steady place to live Within the past 12 months, did the food you bought not last and you didn't have the money to get more?: I choose not to answer this question Within the past 12 months, did you worry whether your food would run out before you got money to buy more?: I choose not to answer this question Do you have trouble paying for medicines?: I choose not to answer this question Do you have trouble getting transportation to medical appointments?: I choose not to answer this question Do you have trouble paying your heating and electricity bill?: I choose not to answer this question Do you have trouble taking care of your child, family member or friend?: I choos e not to answer this question Do you have trouble with day-to-day activities such as bathing, preparing meals, shopping, managing finances, etc.?: I choose not to answer this question Are you currently unemployed and looking for a job?: I choose not to answer this question Are you interested in more education?: I choose not to answer this question Please select the resources that you would like help with: None Currently or been in a relationship where the following occur: I choose not to answer THRIVE Score: 0 AUDIT C Alcohol Use Questionnaire (AUDIT-C) 1. How often do you have a drink containing alcohol?: 2-3 times a week 2. How many drinks containing alcohol do you have on a typical day when you are drinking?: 1 or 2 3. How often do you have six or more drinks on one occasion?: Never Total Score: 3 VARSHA-7 AMB Questionnaire VARSHA-7 Date VARSHA - 7 assessed: 12/30/24 Feeling nervous, anxious, or on edge: 0 = Not at all Not being able to stop or control worryin = Not at all Worrying too much about different things: 0 = Not at all Trouble relaxin = Not at all Being so restless that it is hard to sit still: 0 = Not at all Becoming easily annoyed or irritable: 0 = Not at all Feeling afraid as if something awful might happen: 0 = Not at all Total VARSHA-7 score (0-4 normal; 5-9 mild; 10-14 moderate; 15-21 severe): 0 Source: Developed by Drs. Toribio Farrell, Pamela Doan, Matheus Rice and colleagues, with an educational franki from [employer]. VARSHA-7 Assessment Billing VARSHA-7 Assessment Tool: VARSHA-7 Assessment 01119 Review of Systems Const All systems reviewed & are unremarkable except as noted in HPI and below Eyes Reports no additional complaints ENT Reports no additional complaints Card Reports no additional complaints Resp Reports no additional complaints GI Reports no additional complaints Reports no additional complaints Physical exam (Primary Care) Vital Signs: Last Vital Signs Temp 98.2 F 12/30/24 09:09 Pulse 67 12/30/24 09:09 Resp 18 12/30/24 09:09 BP 126/70 12/30/24 09:09 Pulse Ox 96 12/30/24 09:09 Oxygen Delivery Method Room Air 12/30/24 09:09 BMI result Body Mass Index 27.6 Tobacco/Smoking Status: Tobacco use Status Tobacco use date assessed 12/30/24 12/30/24 09:24 Patient Tobacco Use Status Former Tobacco user 12/30/24 09:09 e-Cigarette/Vaping Use Never Used 12/30/24 09:09 PHQ-9: PHQ-9 Score PHQ-9: Total score 0 12/30/24 09:48 Depression Screening Interpretation: Negative Thrive Assessment: Date of Thrive Assessment Date Thrive assessed 12/30/24 12/30/24 09:24 Currently or been in a relationship where the following occur: I choose not to answer Const General: no acute distress HENMT Head: Yes normal to inspection Ears: hearing grossly normal bilaterally Face and sinus: Yes normal facial exam Eyes General: appearance normal, both eyes and all related structures Neck Neck: Yes no lymphadenopathy and Yes supple Resp Effort & Inspection: normal respiratory effort Auscultation: clear to auscultation bilaterally Cardio Rhythm: regular rhythm Heart sounds: S1 normal heart sound present and S2 normal heart sound present Coding Level of Care Code Est Pt Level 4 (12949) Diagnoses Chronic kidney disease, stage 3 N18.30 Hypercholesterolemia E78.00 Vitamin D deficiency E55.9 Additional Codes VARSHA-7 Assessment Billing - VARSHA-7 Assessment Tool: VARSHA-7 Assessment 40614 ([id number]) PHQ-9 - 51280 - PHQ-9 Billing: Yes ([id number]) Assessment & Plan Assessment & Plan (1) Chronic kidney disease, stage 3: Comment: Normal renal ultrasound 01/02, GFR about 50 Code(s): N18.30 - Chronic kidney disease, stage 3 unspecified Category: Medical Plan: Avoid nephrotoxins monitor renal function (2) Hypercholesterolemia: Code(s): E78.00 - Pure hypercholesterolemia, unspecified Category: Medical Plan: Continue crestor (3) Vitamin D deficiency: Code(s): E55.9 - Vitamin D deficiency, unspecified Category: Medical Plan: Continue vitamin D Medications: Discontinued sertraline (Zoloft) Discontinued Reason: Doctor's Order 50 mg PO DAILY 90 tabs 3RF
--- OUTSIDE RECORDS SUMMARY | 2024-12-30 09:44 | XMS_ITS | Patient Health Record ---
[facility] Address [address] [place] [address] Care Team Providers Care Swage Toolsetter Name Role Phone Nickie Calvert DO Primary Care Provider Josefina Woodson Unavailable [phone] Allergies Allergen (clinical drug ingredient) Drug/Non Drug Allergy documented on EMR Reaction Allergy Type Onset Date Status amoxicillin Amoxicillin rash, throat closes,very weak, lethargic Drug Allergy Active Latex hives, blisters Drug Allergy A ctive Reason For Referral No Information Medications Medication SIG (Take, Route, Frequency, Duration) Notes Start Date End Date Status Fluticasone Propionate HFA 44 MCG/ACT 2 puffs Inhalation Twice a day Active Femring 0.05 MG/24HR Vaginal Active Restasis 0.05 % 1 into affected eye Ophthalmic Twice a day Active Problems No Known Problems Plan Of Treatment No Information Insurance Providers Payer Name Payer Address Payer Phone Subscriber Number Group Number Insured Name Patient Relationship to Insured Coverage Start Date Coverage End Date Medicare National [employer] [address] [facility] [place] [address] [id number] Jessica Gallegos Self - patient is the insured [employer] Payor [id number] [address] [place] [phone] [id number] 32 Tequila matiascarlyJessica Self - patient is the insured Medical (General) History Medical History History ICD Code Broken bones Cholesterol Cataracts Depression Sinus conditions Measles Chicken pox Surgical History Surgery Date(Month/Year) Tonsillectomy 194 hysterectomy 1979 plantar faciitis 1994
== END 2024-12-30 10:02 | disposition home or self-care (01) ==
LOC: HO.HMCC 09:08
PROVIDERS: PCP Internal Medicine; Visit Provider Internal Medicine
DX: N18.30 Chronic kidney disease, stage 3 unspecified (principal); E78.00 Pure hypercholesterolemia, unspecified; E55.9 Vitamin D deficiency, unspecified

== ENCOUNTER → 2024-12-30 09:07 | Outpatient (BNVA) | payer MEDICARE, OTHER, SELFPAY | PROVIDERS: PCP Internal Medicine; Visit Provider Internal Medicine | DX: N18.30 Chronic kidney disease, stage 3 unspecified (principal); E78.00 Pure hypercholesterolemia, unspecified; E55.9 Vitamin D deficiency, unspecified | CPT/HCPCS: 96127; 99212 ==

== ENCOUNTER 2025-04-16 10:42 | Outpatient (REF) | payer MEDICARE, OTHER, SELFPAY ==
--- OUTSIDE RECORDS SUMMARY | 2025-04-16 12:29 | XMS_ITS | Patient Health Record ---
[facility] Address [address] [place] [address] Care Team Providers Care Manager Of Global Name Role Phone Nickie Calvert DO Primary Care Provider Josefina Woodson Unavailable [phone] Allergies Allergen (clinical drug ingredient) Drug/Non Drug [...] Medicare National [employer]t [employer] [address] [place] [address] [id number] Jessica Gallegos Self - patient is the insured [employer] Payor [id number] [address] [place] [phone] [id number] 32 Tequila matiascarlyJessica Self - patient is the insured Medical (General) History Medical History History ICD Code Broken bones Cholesterol Cataracts Depression Sinus conditions Measles Chicken pox Surgical History Surgery Date(Month/Year) Tonsillectomy 194 hysterectomy 1979 plantar faciitis 1994
== END 2025-04-16 10:43 | disposition home or self-care (01) ==
LOC: HO.MAMMO 10:42
PROVIDERS: PCP Internal Medicine; Visit Provider Internal Medicine
DX: Z12.31 Encounter for screening mammogram for malignant neoplasm of breast (principal)
CPT/HCPCS: 77063; 77067

== ENCOUNTER → 2025-04-16 11:00 | Outpatient (BNV) | payer MEDICARE, OTHER, SELFPAY | PROVIDERS: PCP Internal Medicine; Visit Provider Internal Medicine | DX: Z12.31 Encounter for screening mammogram for malignant neoplasm of breast (principal) | CPT/HCPCS: 77063; 77067 ==

== ENCOUNTER 2025-07-01 09:31 | Outpatient (AMB) | payer MEDICARE, OTHER, SELFPAY ==
[2025-07-01 09:42] VITALS: BP 118/70; PULSE 89; RESP 17; O2SAT 95; BMI 28.2
--- NOTE | 2025-07-01 09:42 | AM.OFFVISMDC ---
Intake Vital Signs 07/01/25 09:42 Height 5 ft 3 in Weight 159 lb BMI 28.2 BP 118/70 Blood Pressure Location Lt brachial Position Sitting Respiration 17 Pulse 89 Pulse Source Pulse Oximeter Pulse Oximetry (%) 95 Oxygen Delivery Method Room Air Intake Visit Reasons: [facility] G0439 Allergies amoxicillin (AMOXICILLIN) Allergy (Intermediate, Verified 07/01/25 09:48) RASH/BURNING/DIFF.BREATHING latex (LATEX) Allergy (Mild, Verified 07/01/25 09:48) RASH Medication List - Last Reconciled 07/01/25 by Celi Sidhu MD albuterol sulfate 90 mcg/actuation (Ventolin HFA) 1 inh inhalation QID PRN cyclosporine 0.05% drps ophthalmic (eye) diazepam (Valium) 5 mg PO ONCE estradiol 1 patch topical QWEEK fluticasone propionate 50 mcg/actuation 2 sprays intranasal DAILY latanoprost 0.005% 0 drps ophthalmic (eye) rosuvastatin (Crestor) 5 mg PO DAILY triamcinolone acetonide 0.1% 1 appl topical DAILY valacyclovir (Valtrex) 1,000 mg PO BID 10 days HPI [facility] G0439 HPI Details Initiated the conversation about Advanced Directives. Advanced Directives help? patients prepare for current and future decisions about their medical treatment? and place of care. Discussed with patient that it is a process where a patients? current condition and prognosis are reviewed, their wishes for information? regarding their illness are elicited, and likely medical dilemmas are presented? and options discussed. The form can be amended as needed, reviewed yearly and? make changes as needed IPPE/AWV ? year old presents? for her ? Annual? Wellness Visit, initial visit.? Medical / Social History Reviewed? Past Medical History ?Yes? . ? Mentcle? of Care / Care Team list updated ?Yes . ? Surgical/Hospitalization? History ?Yes . ? Current Medications? (including OTC and supplements) ?Yes . ? Family History ?Yes? . ? Tobacco? Control form ?Yes . ? AUDIT-C (Alcohol use) form? ?Yes . ? Illicit drug use in Social? History ?Yes . ? Current diagnosis of? depression? ?No ? Appropriate PHQ2/PHQ9? completed ?Yes . ? Data entered by ?Medical? Senior Director [employer]ight and reviewed by provider ? Fall Risk ? Fall? History? Have you had any falls with? injury in the past year? ?No . ? Have you had two or more? falls in the past year? ?No . ? Fall Risk Assessment: ?No? falls in the past year . ? HRA filled out by? the patient, reviewed by Provider and scanned. ? IPPE/AWV ? Balance? Romberg? ?Yes . ? Tandem? walk ?Yes . ? Walk and? Turn ?Yes . ? Rise from? sit to stand ?Yes . ?Vision? Corrective? lens ?Yes ? Vision? screen ? Up-to-date, has an appointment [] for vision? screening and glaucoma screening ?Hearing? Whisper? test ?pass .? Initiated the conversation about Advanced Directives. Advanced Directives help? patients prepare for current and future decisions about their medical treatment? and place of care. Discussed with patient that it is a process where a patients? current condition and prognosis are reviewed, their wishes for information? regarding their illness are elicited, and likely medical dilemmas are presented? and options discussed. The form can be amended as needed, reviewed yearly and? make changes as needed Written? Plan?Completed. See Patient? Documents. [facility] Medical History Vitamin B 12 deficiency Annual physical exam Vitamin D deficiency Anemia Chronic kidney disease, stage 3 RLL pneumonia Carpal tunnel syndrome Anxiety and depression Osteoarthritis Syncope, vasovagal Hypercholesterolemia Surgical History H/O colonoscopy History of cataract History of total abdominal hysterectomy and bilateral salpingo-oophorectomy Family History Father Diabetes HTN (hypertension) Multiple myeloma CVD (cardiovascular disease) Cancer Mother Diabetes HTN (hypertension) CVD (cardiovascular disease) Brother Diabetes HTN (hypertension) Maternal Grandmother Diabetes Maternal Grandfather No problems noted. Paternal Grandfather No problems noted. Paternal Grandmother No problems noted. Maternal Aunt Diabetes Cancer Social History Housing: House Patient Tobacco Use Status: Former Tobacco user e-Cigarette/Vaping Use: Never Used Second Hand Smoke Exposure: No service: No Current occupational status: retired Cognitive needs: No Hearing needs: No Vision needs: Yes Questionnaire Medicare Wellness Checkup What is your age?: 80 or older What gender do you identify with?: female During the past 4 weeks, how much have you been bothered by emotional problems such as feeling anxious, depressed, irritable, sad or downhearted, and blue?: not at all During the past 4 weeks, has your physical & emotional health limited your social activities with family, friends, neighbors, or groups?: not at all During the past 4 weeks, how much bodily pain have you generally had?: no pain During the past 4 weeks, was someone available to help you if you needed & wanted help?: no, not at all During the past 4 weeks, what was the hardest physical activity you could do for at least 2 minutes?: very heavy Can you get to places out of walking distance without help? (For eg., can you travel alone on buses, taxis or drive your car?): Yes Can you go shopping for groceries or clothes without someone's help?: Yes Can you prepare your own meals?: Yes Can you do your housework without help?: Yes Because of any health problems, do you need the help of another person with your personal care needs such as eating, bathing, dressing or getting around the house?: No Can you handle your own money without help?: Yes During the past 4 weeks, how would you rate your health in general?: excellent During the past 4 weeks how have things been going for you?: good & bad parts about equal Are you having difficulties driving your car?: no Do you always fasten your seat belt when you are in a car?: yes, usually During past 4 weeks, have you been bothered by the following: never: Sexual problems?, Trouble eating well?, Teeth or denture problems?, Problems using the telephone? and Tiredness or fatigue? and seldom: Falling or dizzy when standing up Have you fallen 2 or more times in the past year?: Yes Are you afraid of falling?: No Are you a smoker?: no During the past 4 weeks, how many drinks of wine, beer, or other alcoholic beverages did you have?: 10 or more per week Do you exercise for about 20 minutes 3 or more times a week?: yes, some of the time Have you been given information to help with the following?: no: Hazards in your house that might hurt you? and no: Keeping track of your medications? How often do you have trouble taking medicines the way you have been told to take them?: I always take medicine as prescribed How confident are you that you can control & manage most of your health problems?: very confident What is your race?: White Mini Mental State Exam (MMSE) Orientation What is the (year) (season) (date) (day) (month)?: year, season, date, day and month Where are we (state) (county) (town or city) (hospital) (floor)?: state, county, town or city, hospital/clinic and floor Registration Name of 3 unrelated objects clearly and slowly, then ask patient to repeat all 3 of them. (1st repeat determines score. Make sure they can repeat all three): object 1, object 2 and object 3 Attention & Calculation (CHOOSE ONE) Spell WORLD backwards (DLROW): 5 letters Recall Ask patient to repeat the 3 items from question #3.: object 1, object 2 and object 3 Language Show patient a wristwatch & ask what it is. Repeat for pencil.: watch and pencil Ask the patient to repeat the phrase 'No ifs, ands, or buts' after you.: correct Ask the patient to 'take a piece of paper with their right hand' 'fold paper in half' 'place paper on floor': take paper in right hand, fold paper in half and place paper on floor Print the sentence 'CLOSE YOUR EYES' on a piece. If patient actually closes eyes then score.: followed written direction Give patient a blank piece of paper & ask to write a sentence. Score if it contains a noun & verb.: sentence contains subject and verb Score Score: 29 PHQ-9 Over the last 2 weeks, how often have you been bothered by any of the following problems? 1. Little interest or pleasure in doing things: not at all 2. Feeling down, depressed, or hopeless: not at all 3. Trouble falling or staying asleep, or sleeping too much: not at all 4. Feeling tired or having little energy: not at all 5. Poor appetite or overeating: not at all 6. Feeling bad about yourself - or that you are a failure or have let yourself or your family down: not at all 7. Trouble concentrating on things, such as reading the newspaper or watching television: not at all 8. Moving or speaking so slowly that other people could have noticed. Or the opposite - being so fidgety or restless that you have been moving around a lot more than usual: not at all 9. Thoughts that you would be better off or of hurting yourself in some way: not at all Total score: 0 Depression Screening Interpretation: Negative Depression Screening Done: Yes Source: Developed by Drs. Toribio Farrell, Pamela B.W. Matheus Doan and colleagues, with an educational franki from [employer]. Review of Systems Const All systems reviewed & are unremarkable except as noted in HPI and below Eyes Reports no additional complaints ENT Reports no additional complaints Resp Reports no additional complaints GI Reports no additional complaints Reports no additional complaints Physical Exam Vital Signs: Last Vital Signs Pulse 89 07/01/25 09:42 Resp 17 07/01/25 09:42 BP 118/70 07/01/25 09:42 Pulse Ox 95 07/01/25 09:42 Oxygen Delivery Method Room Air 07/01/25 09:42 BMI result Body Mass Index 28.2 Const General: no acute distress HEENT Head: Yes normal to inspection Eyes General: appearance normal, both eyes and all related structures Neck Neck: Yes no lymphadenopathy and Yes supple Resp Effort & Inspection: normal respiratory effort Auscultation: clear to auscultation bilaterally Cardio Rhythm: regular rhythm Heart sounds: S1 normal heart sound present and S2 normal heart sound present GI Inspection: Yes normal to inspection Palpation (GI): Soft to palpation Percussion: Yes normal to percussion Auscultation: normal bowel sounds Extrem General: Yes no clubbing, cyanosis or edema Assessment & Plan Assessment & Plan (1) Bilateral carotid bruits: Code(s): R09.89 - Other specified symptoms and signs involving the circulatory and respiratory systems Plan: Obtain carotid ultrasound (2) Hypercholesterolemia: Code(s): E78.00 - Pure hypercholesterolemia, unspecified Plan: Continue statin (3) Chronic kidney disease, stage 3: Comment: Normal renal ultrasound 01/02, GFR about 50 Code(s): N18.30 - Chronic kidney disease, stage 3 unspecified Plan: Monitor renal function avoid nephrotoxins (4) Annual physical exam: Code(s): Z00.00 - Encounter for general adult medical examination without abnormal findings Plan: Well-balanced diet regular physical activity discussed with the patient , follow-up in 6 months Orders: Orders Lipid Panel Today E53.8 - Deficiency of other specified B group vitamins, E55.9 - Vitamin D deficiency, unspecified, N18.30 - Chronic kidney disease, stage 3 unspecified, R09.89 - Other specified symptoms and signs involving the circulatory and respiratory systems TSH reflex Free T4 Today E53.8 - Deficiency of other specified B group vitamins, E55.9 - Vitamin D deficiency, unspecified, N18.30 - Chronic kidney disease, stage 3 unspecified, R09.89 - Other specified symptoms and signs involving the circulatory and respiratory systems US carotid duplex BI Today E53.8 - Deficiency of other specified B group vitamins, E55.9 - Vitamin D deficiency, unspecified, N18.30 - Chronic kidney disease, stage 3 unspecified, R09.89 - Other specified symptoms and signs involving the circulatory and respiratory systems Vitamin D 25-OH Total Today E53.8 - Deficiency of other specified B group vitamins, E55.9 - Vitamin D deficiency, unspecified Comprehensive [place]. Panel Fast Today E53.8 - Deficiency of other specified B group vitamins, E55.9 - Vitamin D deficiency, unspecified, N18.30 - Chronic kidney disease, stage 3 unspecified, R09.89 - Other specified symptoms and signs involving the circulatory and respiratory systems Complete Blood Count Auto Diff Today E53.8 - Deficiency of other specified B group vitamins, E55.9 - Vitamin D deficiency, unspecified, N18.30 - Chronic kidney disease, stage 3 unspecified, R09.89 - Other specified symptoms and signs involving the circulatory and respiratory systems Vitamin B12 and Folate Today E53.8 - Deficiency of other specified B group vitamins, E55.9 - Vitamin D deficiency, unspecified Medications: New azithromycin For 250 mg dose pack: take 500 mg today (day 1), then 250 mg for 4 days (days 2-5) PO 6 tabs 0RF Quality Reporting (2019) Depression/Bipolar (159/160/161/177) PHQ-9: Total score: 0 Coding Level of Care Code Medicare Subsequent (G0439) Diagnoses Bilateral carotid bruits R09.89 Hypercholesterolemia E78.00 Chronic kidney disease, stage 3 N18.30 Annual physical exam Z00.00 CPT Codes Advance Care Planning - Advance Care Planning discussion: On file, no changes ([id number]) Advance Care Planning - Time spent: 1-15 minutes, on File ([id number]) Advance Care Planning Advance Care Planning discussion: On file, no changes Forms completed: Health Care Proxy Time spent: 1-15 minutes, on File
== END 2025-07-01 10:23 | disposition home or self-care (01) ==
LOC: HO.HMCC 09:32
PROVIDERS: PCP Internal Medicine; Visit Provider Internal Medicine
DX: R09.89 Other specified symptoms and signs involving the circulatory and respiratory systems (principal); E78.00 Pure hypercholesterolemia, unspecified; N18.30 Chronic kidney disease, stage 3 unspecified; Z00.00 Encounter for general adult medical examination without abnormal findings